=== PATIENT | male | born 1950 | race Caucasian/White ===

== ENCOUNTER 2025-03-11 09:53 | Outpatient (REF) | payer OTHER, SELFPAY ==
--- NOTE | ~2025-03-11 | XR_ITS ---
Exam: Three-view bilateral knee INDICATION: Bilateral knee pain. TECHNIQUE: AP, lateral, sunrise view lower extremity joint, knee bilateral Prior: None FINDINGS: RIGHT KNEE: 3 compartment total knee arthroplasty has been performed. Femoral and tibial components are secured with cement. There is a joint effusion. No abnormal lucency is present at the bone metal interfaces. Vascular calcifications are evident in the popliteal artery vessel and the diameter appears prominent. LEFT KNEE: There is severe narrowing of the medial compartment and mild to moderate narrowing of the lateral joint space. There is minimal narrowing of the patella femoral joint space. There are tricompartmental marginal osteophytes that are moderate sized. There is no joint effusion. There is medial subluxation of the femur at the joint. Vascular calcifications are present in the popliteal artery. XR/XR Knee Fabian 3V IMPRESSION: RIGHT KNEE: Joint effusions. Changes related to total knee arthroplasty. 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 LEFT KNEE: Severe osteoarthritis is most advanced in the medial joint space. Electronically signed by: Alex Ballard MD 03/11/2025 03:10 PM EDT
--- OUTSIDE RECORDS SUMMARY | 2025-03-12 10:58 | XMS_ITS | Clinical Summary ---
Author Organization [facility] Address [address] [place] [address] Phone Care Team Providers Care Water Main Inspector Name Role Phone Alexandrea Renner Primary Care Provider [phone] Allergies Active Allergy Reactions Criticality Noted Date [...] 1:00 PM EDT Office Visit Orthopedic Surgery [place] [address] [phone] Jose Thomas DPM Tinea pedis of both [...] 05/06/2025 1:15 PM EDT Office Visit Orthopedic [facility] [address] [phone] Jose Thomas DPM [address] [address] Health Maintenance Due Date Last Done Comments [...] LAB CHEMISTRY METHOD 11/14/2024 10:06 AM EST [facility] Potassium 4.2 3.5 - 5.5 mmol/L LAB CHEMISTRY METHOD 11/14/2024 10:06 AM [facility] Chloride 100 96 - 110 mmol/L LAB CHEMISTRY METHOD 11/14/2024 10:06 AM [facility] CO2 32 21 - 32 mmol/L LAB CHEMISTRY METHOD 11/14/2024 10:06 AM [facility] Anion Gap 4 3 - 11 LAB CHEMISTRY METHOD 11/14/2024 10:06 AM [facility] Glucose 85 70 - 100 mg/dL LAB CHEMISTRY METHOD 11/14/2024 10:06 AM [facility] BUN 15 5 - 25 mg/dL LAB CHEMISTRY METHOD 11/14/2024 10:06 AM [facility] Creatinine 0.80 0.70 - 1.30 mg/dL LAB CHEMISTRY METHOD 11/14/2024 10:06 AM [facility] eGFR 92 >=60 mL/min/1. 73m2 LAB CHEMISTRY METHOD 11/14/2024 10:06 AM [facility] Comment:Calculation based on the??Chronic Kidney Disease Epidemiology Collaboration (CKD-EPI) equation refit??without adjustment for race. BUN/Creatinine Ratio 18.8 LAB CHEMISTRY METHOD 11/14/2024 10:06 AM [facility] Calcium 8.7 8.5 - 10.5 mg/dL LAB CHEMISTRY METHOD 11/14/2024 10:06 AM [facility] Blood Venous blood specimen / Unknown Venipuncture / Unknown 11/14/2024 6:02 AM EST 11/14/2024 9:18 AM EST us Elena Pepe MD LAB BLOOD ORDERABLES Fin al Result [facility] [address] [place] [address], [place] [phone] from Last 3 Months or Most Recently Relevant to Health Maintenance Insurance [employer] Member Subscriber Plan / Payer (Ef fective 2023-Present) Name:Marcio Cannon Relation to Subscriber:Self Name:Marcio Cannon Payer ID:[id number] Group ID:[id number] Type:Not on file Address: [place] [address] [address] [phone] Care Teams Water Main Inspector Relationship Specialty Start Date End Date Alexandrea Renner PA [address] [place] [id number] PCP - General 08/23/24
== END 2025-03-11 09:54 | disposition home or self-care (01) ==
LOC: HO.HOSX 09:53
PROVIDERS: Visit Provider Orthopaedic Surgery
DX: M25.561 Pain in right knee (principal); M25.562 Pain in left knee; G89.29 Other chronic pain; E66.9 Obesity, unspecified
CPT/HCPCS: 73562; 99202

== ENCOUNTER 2025-03-11 10:52 | Outpatient (AMB) | payer OTHER, SELFPAY ==
--- NOTE | 2025-03-11 11:11 | MHC.OFFVIS ---
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 The patient states that he underwent right total knee replacement surgery approximately 5 years ago. He denies any fevers or chills. The patient states that he has recently put on weight and has tried exercising but has had increased pain. He has not been to formal physical therapy recently. He also reports intermittent pain along the lateral aspects of both of his hips. Receipt And Report Clerk Required: Yes Receipt And Report Clerk Language: In Store Representative Services: Receipt And Report Clerk Present Receipt And Report Clerk Name: GwynSHANIQUAA/NAOMY Allergies atorvastatin [From Lipitor] Adverse Reaction (Unknown, Verified 03/11/25 11:15) Constipation other Allergy (Unknown, Uncoded 03/11/25 11:15) Itching Physical Exam Vital Signs: BMI result Body Mass Index 39.9 Const Other: Well-nourished well-developed very friendly male awake alert and oriented x3 in no acute distress Extrem Other: Right knee examination shows that the surgical incision is well healed, no erythema, full active extension and flexion to 110 degrees, his patella tracks well, no instability Left knee examination shows a minimal effusion, palpable crepitus with range of motion, pain with range of motion, no instability Results Reviewed Results Reviewed: X-rays of the patient's right knee show a total knee arthroplasty in good position with no signs of loosening, no acute bony abnormalities X-rays of the patient's left knee show joint space narrowing, subchondral sclerosis, no acute bony abnormalities Assessment & Plan Assessment & Plan (1) Chronic pain of both knees: Code(s): M25.561 - Pain in right knee; M25.562 - Pain in left knee; G89.29 - Other chronic pain Category: Medical (2) Obesity (BMI 30-39.9): Code(s): E66.9 - Obesity, unspecified Category: Medical Plan Mr. Bebeto العراقي presents with bilateral hip pains as well as bilateral knee pains most likely due to weight gain and deconditioning. At this point he does not appear to have anything mechanically wrong with his right total knee arthroplasty. I had a lengthy discussion with the patient regarding the treatment options. This point no further surgery is indicated. I did recommend that the patient be evaluated in our weight loss clinic. I also gave him a prescription to go back to formal physical therapy. He will follow up with me on an as-needed basis. Feel free to call me at any time should questions regarding his orthopedic management arise. I spent 20 minutes in reviewing the patient's records and imaging studies, seeing the patient and documenting in the medical record. Orders: Orders XR Knee Fabian 3V Today G89.29 - Other chronic pain, M25.561 - Pain in right knee, M25.562 - Pain in left knee PT Evaluation and Treatment Today G89.29 - Other chronic pain, M25.551 - Pain in right hip, M25.552 - Pain in left hip, M25.561 - Pain in right knee, M25.562 - Pain in left knee Referrals Medical Weight Management Referral E66.9 - Obesity, unspecified Coding Level of Care Code New Pt Level 3 (82839) Complex EM visit Add On G2211 Diagnoses Chronic pain of both knees M25.561; M25.562; G89.29 Obesity (BMI 30-39.9) E66.9
[2025-03-11 11:12] VITALS: BMI 39.9
--- OUTSIDE RECORDS SUMMARY | 2025-03-11 12:51 | XMS_ITS | Clinical Summary ---
Author Organization [facility] Address [address] [place] [address] Phone Care Team Providers Care Knurling Machine Tender Name Role Phone Alexandrea Renner Primary Care Provider [phone] Allergies Active Allergy Reactions Criticality Noted Date Comments Vancomycin Anaphylaxis High 08/21/2024 Medications albuterol 2.5 mg /3 mL (0.083 %) nebulizer solution Inhale 3 mL by nebulization route. 5 Active albuterol-budeso nide (Airsupra) 90-80 mcg/actuation inhaler Inhale by mouth. 5 Active amoxicillin (AMOXIL) 875 mg tablet TAKE 1 TABLET BY MOUTH TWO TIMES A DAY FOR 2 DAYS Active aspirin 81 mg EC tablet Take 1 tablet (81 mg total) by mouth 1 (one) time each day. Active bacitracin zinc 500 unit/gram ointment Apply 1 Application topically 2 (two) times a day. 5 Active diclofenac (VOLTAREN) 1 % topical gel Apply 4 g topically 2 times daily. 4 Active ketoconazole (NIZORAL) 2 % cream APPLY TOPICALLY TO AFFECTED AREA TWO TIMES A DAY FOR 4 WEEKS Active olmesartan-hydro CHLOROthiazide (BENICAR HCT) 20-12.5 mg per tablet Take 1 tablet by mouth 1 (one) time each day. Active rosuvastatin (CRESTOR) 40 mg tablet Take 1 tablet (40 mg total) by mouth at bedtime. 5 Active silver sulfADIAZINE (SILVADENE, SSD) 1 % cream PLEASE SEE ATTACHED FOR DETAILED DIRECTIONS 5 Active simvastatin (ZOCOR) 40 mg tablet Take 1 tablet (40 mg total) by mouth at bedtime. Active tamsulosin (FLOMAX) 0.4 mg 24 hr capsule Take 1 capsule (0.4 mg total) by mouth 1 (one) time each day. Active acetaminophen (TYLENOL) 325 mg tablet Take 2 tablets (650 mg total) by mouth every 6 hours as needed. Active Encounters Date Type Department Care Team Description 02/03/2025 1:00 PM EDT Office Visit Orthopedic Surgery [place] [address] [phone] Jose Thomas DPM Tinea pedis of both feet (Primary Dx); Peripheral venous insufficiency; Dermatophytosis of nail; Pain in toe of right foot; Pain in toe of left foot; Bilateral femoral artery stenosis (CMS/HCC V24) from Last 3 Months Social History Tobacco Use Types Packs/Day Years Used Date Smoking Tobacco: Never Assessed Sex and Gender Information Value Date Recorded Sex Assigned at Not on file Legal Sex Male 9:51 AM EST Gender Identity Not on file Sexual Orientation Not on file Last Filed Vital Signs Vital Sign Reading Time Taken Comments Blood Pressure - - Pulse - - Temperature - - Respiratory Rate - - Oxygen Saturation - - Inhaled Oxygen Concentration - - Weight 133 kg (292 lb 12.8 oz) 11/04/2024 1:13 P M EST Height 182.9 cm (6') 11/04/2024 1:13 PM EST Body Mass Index 39.71 11/04/2024 1:13 PM EST Plan of Treatment Upcoming Encounters Date Type Department Care Team (Late st Contact Info) Description 05/06/2025 1:15 PM EDT Office Visit Orthopedic [facility] [address] [phone] Jose Thomas DPM [address] [address] Health Maintenance Due Date Last Done Comments DTaP,Tdap,and Td Vaccines (1 - Tdap) 1967 Pneumococcal Vaccine: 50+ Years (1 of 1 - PCV) 1998 Zoster Vaccines (1 of 2) 1998 RSV Immunization Adult Patients (1 - 1-dose 75+ series) 2023 COVID-19 Vaccine ( season) 2024 Falls Risk Assessment 08/24/2024 Medicare Annual Wellness Visit 08/24/2024 Social Influencers of Health Screening 08/24/2024 Influenza Vaccine (Season Ended) 2025 Hypertension/CHF/CAD Annual BMP Blood Test 11/14/2025 11/14/2024, 11/11/2024, 11/07/2024, Additional history exists Depression Screening 12/10/2025 12/10/2024 Cholesterol Screening (Lipid Panel) 08/21/2029 08/21/2024, 08/21/2024 Hepatitis C Screening Completed 08/21/2024 HIB Vaccines Aged Out No longer eligi ble based on patient's age to complete this topic HPV Vaccines Aged Out No longer eligi ble based on patient's age to complete this topic Hepatitis A Vaccines Aged Out No long er eligible based on patient's age to complete this topic Hepatitis B Vaccines Aged Out No long er eligible based on patient's age to complete this topic IPV Vaccines Aged Out No longer eligi ble based on patient's age to complete this topic MMR Vaccines Aged Out No longer eligi ble based on patient's age to complete this topic Meningococcal ACWY Vaccine Aged Out N o longer eligible based on patient's age to complete this topic Meningococcal B Vaccine Aged Out No l onger eligible based on patient's age to complete this topic RSV Immunization Patients Under 20 months Aged Out No longer eligible based on patient's age to complete this topic Varicella Vaccines Aged Out No longer eligible based on patient's age to complete this topic Procedures Procedure Name Priority Date/Time Associated Diagnosis Comments BASIC METABOLIC PANEL Routine 11/14/2024 6:02 AM EST Chronic embolism and thrombosis of unspecified vein Essential (primary) hypertension from Last 3 Months or Most Recently Relevant to Health Maintenance Results * Basic metabolic panel (11/14/2024 6:02 AM EST) Sodium 136 133 - 145 mmol/L LAB CHEMISTRY METHOD 11/14/2024 10:06 AM EST [facility] Potassium 4.2 3.5 - 5.5 mmol/L LAB CHEMISTRY METHOD 11/14/2024 10:06 AM [facility] Chloride 100 96 - 110 mmol/L LAB CHEMISTRY METHOD 11/14/2024 10:06 AM [facility] CO2 32 21 - 32 mmol/L LAB CHEMISTRY METHOD 11/14/2024 10:06 AM [facility] Anion Gap 4 3 - 11 LAB CHEMISTRY METHOD 11/14/2024 10:06 AM [facility] Glucose 85 70 - 100 mg/dL LAB CHEMISTRY METHOD 11/14/2024 10:06 AM [facility] BUN 15 5 - 25 mg/dL LAB CHEMISTRY METHOD 11/14/2024 10:06 AM [facility] Creatinine 0.80 0.70 - 1.30 mg/dL LAB CHEMISTRY METHOD 11/14/2024 10:06 AM [facility] eGFR 92 >=60 mL/min/1. 73m2 LAB CHEMISTRY METHOD 11/14/2024 10:06 AM [facility] Comment:Calculation based on the??Chronic Kidney Disease Epidemiology Collaboration (CKD-EPI) equation refit??without adjustment for race. BUN/Creatinine Ratio 18.8 LAB CHEMISTRY METHOD 11/14/2024 10:06 AM [facility] Calcium 8.7 8.5 - 10.5 mg/dL LAB CHEMISTRY METHOD 11/14/2024 10:06 AM [facility] Blood Venous blood specimen / Unknown Venipuncture / Unknown 11/14/2024 6:02 AM EST 11/14/2024 9:18 AM EST us Elena Pepe MD LAB BLOOD ORDERABLES Fin al Result [facility] [address] [place] [address], [place] [phone] from Last 3 Months or Most Recently Relevant to Health Maintenance Insurance [employer] Member Subscriber Plan / Payer (Ef fective 2023-Present) Name:Marcio Cannon Relation to Subscriber:Self Name:Marcio Cannon Payer ID:[id number] Group ID:[id number] Type:Not on file Address: [place] [address] [phone] Care Teams Knurling Machine Tender Relationship Specialty Start Date End Date Alexandrea Renner PA [address] [place] [id number] PCP - General 08/23/24
== END 2025-03-11 11:38 | disposition home or self-care (01) ==
LOC: HO.HOS 10:52
PROVIDERS: PCP Internal Medicine; Visit Provider Orthopaedic Surgery
DX: M25.561 Pain in right knee (principal); M25.562 Pain in left knee; G89.29 Other chronic pain; E66.9 Obesity, unspecified; Z96.651 Presence of right artificial knee joint
CPT/HCPCS: 99203; G2211

== ENCOUNTER → 2025-03-11 10:55 | Outpatient (BNV) | payer OTHER, SELFPAY | PROVIDERS: Visit Provider Radiology Diagnostic Radiology | DX: M25.561 Pain in right knee (principal); M25.562 Pain in left knee | CPT/HCPCS: 73562 ==

== ENCOUNTER 2025-05-01 06:47 | Outpatient (REF) | payer OTHER, SELFPAY ==
--- NOTE | ~2025-05-01 | XR_ITS ---
EXAMINATION: XR PELVIS CLINICAL INFORMATION: M25.559 - Pain in unspecified hip COMPARISON: None available. TECHNIQUE: AP view of the pelvis. FINDINGS: Coarse calcification in the midline, near the pubic symphysis joint, is probably prostatic. There is dense calcification in the right common femoral artery. There is mild narrowing of right greater than left SI joints. There is sclerosis involving pubic symphysis joint. There is mild axial joint space narrowing of the hips bilaterally, more on the right. Minimal roof osteophytes are present involving both acetabula. Moderate degenerative sclerosis is visible in the lower lumbar spine. 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 Moderate degenerative changes in the lower lumbar spine. Electronically signed by: Alex Ballard MD 05/01/2025 11:23 AM EDT
--- OUTSIDE RECORDS SUMMARY | 2025-05-01 06:49 | XMS_ITS | Clinical Summary ---
Author Organization [facility] Address [address] [place] [address] Care Team Providers Care Machinist 2Nd Shift Name Role Phone Rachel Melgar NP Primary Care Provider Source Comments PLEASE NOTE, if this patient is a minor, it may be UNLAWFUL to discuss sensitive information that is contained in these records (such as FAMILY PLANNING, MENTAL HEALTH or SUBSTANCE ABUSE) with the minor patient's parent or other person without the patient's specific authorization.[facility] Allergies Active Allergy Reactions Criticality Noted Date Comments Atorvastatin 12/20/2024 constipation Vancomycin Anaphylaxis High 08/21/2024 Medications albuterol-budeson marcos (AIRSUPRA) 90-80 mcg/actuation HFAA Inhale into the lungs 10/09/19 25 Active albuterol (PROVENTIL) 2.5 mg /3 mL (0.083 %) nebulizer solution Inhale 3 mL by nebulization route. 10/07/19 25 Active albuterol-budeson marcos (AIRSUPRA) 90-80 mcg/actuation HFAA Inhale 2 inhalations every 4-6 hours by inhalation route as needed. Active silver sulfADIAZINE (SILVADENE) 1 % creamIndications: Cellulitis, unspecified cellulitis site,Chronic venous insufficiency Apply topically once daily Only apply to wound bed. Cleanse with epson salt or normal saline daily and apply dressing. Change daily. 20 g 1 02/20/20 25 Active aspirin (ADULT LOW DOSE ASPIRIN) [address] tablet Take 1 Tablet by mouth once daily. 90 Tablet 1 02/20/20 25 Active diclofenac sodium (VOLTAREN) 1 % gelIndications:Ch ronic pain of both knees,History of total right knee replacement (TKR) Apply 4 g topically 2 (two) times daily. 150 g 1 02/20/20 25 Active olmesartan-hydroc hlorothiazide (BENICAR HCT) 20-12.5 mg per tabletIndications :Essential (primary) hypertension Take 1 Tablet by mouth once daily. 90 Tablet 1 02/20/20 25 Active rosuvastatin (CRESTOR) 40 mg tabletIndications :Essential (primary) hypertension Take 1 Tablet by mouth nightly at bedtime. 90 Tablet 1 02/20/20 25 Active tamsulosin (FLOMAX) 0.4 mg 24 hr capsuleIndication s:Benign prostatic hyperplasia, unspecified whether lower urinary tract symptoms present Take 1 Capsule by mouth once daily. 90 Capsule 02/20/20 25 Active Active Problems Problem Noted Date Diagnosed Date PAD (peripheral artery disease) ([facility] V24) Overview (04/16/2025): 04/10/2025 - [facility] [place] - Dx: PAD and venous stasis ulcers - Plan: OR for right femoral endarterectomy; Preoperative clearance prior to the operating room - continue diet as appropriate, aspirin and stain, smoking cessation Bilateral femoral artery stenosis ([facility] V24) 02/19/2025 PVD (peripheral vascular disease) ([facility] V24) 02/19/2025 Severe obesity ([facility]) 12/17/2024 S/P knee replacement 12/17/2024 H/O deep venous thrombosis 12/17/2024 Essential (primary) hypertension High cholesterol Cellulitis Dyslipidemia BPH (benign prostatic hyperplasia) Aneurysm artery, popliteal ([facility] V24) Overview (08/21/2024): Noted [facility] 03/01/2024 Decreased strength, endurance, and mobility Tinea pedis Encounters Date Type Department Care Team Description 03/12/2025 Interim Notes Caring [facility] [address] [place] [phone] Jarod Martin 03/06/2025 Interim Notes [facility]aring [facility] [address] [place] [address] Jarod Martin 02/19/2025 1:50 PM EDT Interim Notes Caring [facility] Mobile [address] [place] [address] 02/19/2025 1:00 PM EDT Office Visit [address] [phone] Rachel Melgar NP from Last 3 Months Family History Medical History Relation Name Comments No Known Problems Daughter 1 No Known Problems Daughter 2 No Known Problems Daughter 3 Breast cancer Mother No Known Problems Sister No Known Problems Son 1 No Known Problems Son 2 No Known Problems Son 3 No Known Problems Son 4 Relation Name Status Comments Daughter 1 Alive Daughter 2 Alive Daughter 3 Alive Father Maternal Grandfather Maternal Grandmother Mother Paternal Grandfather Paternal Grandmother Sister Alive Son 1 Alive Son 2 Alive Son 3 Alive Son 4 Alive Social History Tobacco Use Types Packs/Day Years Used Date Smoking Tobacco: Former Cigarettes Smokeless Tobacco: Never Tobacco Cessation:Counseling Given: No Comments:Started smoking ~ 6 years old - Quit smoking 64 years old -- pt reports 40 year pk/hx Alcohol Use Standard Drinks/Week Comments Not Currently 0 (1 standard drink = 0.6 oz pur e alcohol) quit years ago Social Connections Answer Date Recorded How often do you feel lonely or isolated from th ose around you? 1 08/21/2024 Financial Resource Strain Answer Date R ecorded Hard to pay for: Food 1 08/21/2024 Stress Answer Date Recorded Do you feel these kinds of stress these days? 1 08/21/2024 Physical Activity Answer Date Recorded Physical Activity 0 03/11/2024 Food Insecurity Answer Date Recorded Hard to pay for: Food 1 08/21/2024 Transportation Needs Answer Date Record ed Hard to pay for: Transportation 1 08/21/2024 Housing Stability Answer Date Recorded Hard to pay for: Rent/Mortgage payment 1 08/21/2024 Safety and Environment Answer Date Kelvin rded Safety 0 03/11/2024 Utilities Answer Date Recorded Hard to pay for: Utilities 1 08/21 Employment Answer Date Recorded Stress 0 06/17/2024 Sex and Gender Information Value Date Recorded Sex Assigned at Male 08/21/2024 9:07 AM PST Legal Sex Male 8:24 AM PDT Gender Identity Male 08/21/2024 9:07 AM PST Sexual Orientation Straight 08/21/2024 9: 07 AM PST Last Filed Vital Signs Vital Sign Reading Time Taken Comments Blood Pressure 144/66 02/19/2025 1:35 PM EDT Pulse 88 02/19/2025 1:35 PM EDT Temperature 36.6 C (97.9 F) 12/20/2024 1:54 PM EDT Respiratory Rate 18 02/19/2025 1:35 PM EDT Oxygen Saturation 98% 12/20/2024 1:54 PM EDT Inhaled Oxygen Concentration - - Weight 117 kg (258 lb) 08/21/2024 10:17 AM EST Height 182.9 cm (6') 08/21/2024 10:17 AM EST Body Mass Index 34.99 08/21/2024 10:17 AM EST Plan of Treatment Upcoming Encounters Date Type Department Care Team ([facility] st Contact Info) Description 05/07/2025 9:50 AM EDT Interim Notes [address] [phone] 05/07/2025 10:40 AM EDT Office Visit [address] [phone] Rachel Melgar, MUCK MINER [address] [place] [address] 05/07/2025 11:00 AM EDT Interim Notes [address] [phone] Health Maintenance Due Date Last Done Comments Medicare Annual Wellness Visit 1966 Imm-DTaP/Tdap/Td (1 - Tdap) 1967 Imm-Pneumococcal 50+ (1 of 1 - PCV) 1998 Imm-Zoster, Recombinant (1 of 2) 1998 Imm-RSV (adult) (1 - 1-dose 75+ series) 2023 [id number] ( - season) 2024 Imm-Influenza (#1) 2025 Falls Prevention 09/05/2025 09/05/2024 Tobacco Screening 02/20/2026 02/20/2025 Diabetes Screening 11/14/2027 11/14/2024, 0 11/11/2024, 11/07/2024, Additional history exists Hepatitis C Screening Completed 08/21/2024 Alcohol and Drug Screen Completed 12/10/2024 Depression Annual Screen Completed 12/10/2024 Procedures Procedure Name Priority Date/Time Associated Diagnosis Comments REFERRAL TO VASCULAR SURGERY Routine 04/10/2025 3:00 AM EDT Aneurysm artery, popliteal (CMS-HCC V24) Cellulitis of right lower extremity OTHER ORDERS SCANNED DOCUMENT 03/19/2025 3:00 AM EDT REFERRAL TO ORTHOPEDICS Routine 03/11/2025 3:00 AM EDT Status post knee replacement, unspecified laterality OTHER ORDERS SCANNED DOCUMENT 03/10/2025 3:00 AM EDT HEPATITIS C AB W/RFLX HCV RNA, QT, RT PCR Routine 08/21/2024 11:30 AM EST Encounter to establish care COMPREHENSIVE METABOLIC PANEL Routine 08/21/2024 11:30 AM EST Encounter to establish care Essential (primary) hypertension from Last 3 Months or Most Recently Relevant to Health Maintenance Results * REFERRAL TO VASCULAR SURGERY (04/10/2025 3:00 AM EDT) 04/10/2025 3:00 AM EDT Alexandrea Renner PA-C REFERRAL Final Resul t * OTHER ORDERS SCANNED DOCUMENT (03/19/2025 3:00 AM EDT) Only the most recent of2 resultswithin the time period is included. 03/19/2025 3:00 AM EDT us Rachel Melgar NP SCAN OTHER ORDERS Final Resu lt * REFERRAL TO ORTHOPEDICS (03/11/2025 3:00 AM EDT) 03/11/2025 3:00 AM EDT us Rachel Melgar NP REFERRAL Final Result * HEPATITIS C AB W/RFLX HCV RNA, QT, RT PCR (08/21/2024 11:30 AM EST) Pathologist [facility] HEPATITIS C ANTIBODY NON-REACT RADHA NON-REACT RADHA [employer] [facility] Comment: HCV antibody was non-reactive. There is no laboratory evidence of HCV infection. In most cases, no further action is required. However, if recent HCV exposure is suspected, a test for HCV RNA (test code 11038) is suggested. For additional information please refer to http://education.Quack/faq/GFF74a9 (This link is being provided for informational/ educational purposes only.) Blood Blood / Unknown 08/21/2024 1 1:30 AM EST 08/21/2024 11:31 AM EST Narrative [employer] [facility] - 08/22/2024 6:47 AM EST FASTING:NO Alexandrea Renner PA-C LAB - BLOOD DRAW Final Resu lt [employer] [address] [address], [employer] [address] [address] * (ABNORMAL) COMPREHENSIVE METABOLIC PANEL (08/21/2024 11:30 AM EST) [facility] GLUCOSE 100 65 - 139 mg/dL [employer] [facility] Comment: Non-fasting reference interval UREA NITROGEN (BUN) 22 7 - 25 mg/dL [facility] CREATININE (blood) 1.04 0.70 - 1.28 mg/dL [facility] EGFR 74 > OR = 60 mL/min/1. 73m2 [facility] BUN/CREATININE RATIO SEE NOTE: [facility] Comment: Not Reported: BUN and Creatinine are within reference range. SODIUM 136 135 - 146 mmol/L [facility] POTASSIUM 4.2 3.5 - 5.3 mmol/L [facility] CHLORIDE 98 98 - 110 mmol/L [facility] CARBON DIOXIDE 30 20 - 32 mmol/L [facility] CALCIUM 8.7 8.6 - 10.3 mg/dL [facility] PROTEIN, TOTAL 8.1 6.1 - 8.1 g/dL [facility] ALBUMIN 4.0 3.6 - 5.1 g/dL [facility] GLOBULIN 4.1(H) 1.9 - 3.7 g/dL (calc) [employer] [facility] ALBUMIN/GLOBULI N RATIO 1.0 1.0 - 2.5 (calc) [employer] [facility] BILIRUBIN, TOTAL 0.4 0.2 - 1.2 mg/dL [employer] [facility] ALKALINE PHOSPHATASE 79 35 - 144 U/L [facility] AST 21 10 - 35 U/L [employer] [facility] ALT 19 9 - 46 U/L [employer] [facility] Blood Blood / Unknown 08/21/2024 1 1:30 AM EST 08/21/2024 11:31 AM EST Narrative [employer] [facility] [employer] [facility] - 08/22/2024 6:47 AM EST FASTING:NO us Alexandrea Renner PA-C LAB - BLOOD DRAW Edited Res ult - Final [employer] [address] [address], [employer] [facility] [address] [place] [address] from Last 3 Months or Most Recently Relevant to Health Maintenance Insurance [facility] Care Teams Machinist 2Nd Shift Relationship Specialty Start Date End Date Rachel Melgar NP [address] [place] [address] PCP - General Internal Medicine 09/03/24
--- OUTSIDE RECORDS SUMMARY | 2025-05-01 06:49 | XMS_ITS | Clinical Summary ---
Author Organization [facility] Address [address] [place] [address] Phone Care Team Providers Care Hand I Cutter Name Role Phone Alexandrea Renner Primary Care Provider [phone] Allergies Active Allergy Reactions Criticality Noted Date [...] 1:00 PM EDT Office Visit Orthopedic Surgery [place] [address] [phone] Jose Thomas DPM Tinea pedis of both [...] 05/06/2025 1:15 PM EDT Office Visit Orthopedic [facility] [address] [phone] Jose Thomas DPM [address] [address] Health Maintenance Due Date Last Done Comments DTaP,Tdap,and Td Vaccines (1 - Tdap) 1967 Pneumococcal Vaccine: 50+ Years (1 of 1 - PCV) 1998 Zoster Vaccines (1 of 2) 1998 RSV Immunization Adult Patients (1 - 1-dose 75+ series) 2023 COVID-19 Vaccine (2023- season) 2024 Falls Risk Assessment 08/24/2024 Medicare Annual Wellness Visit 08/24/2024 Social Influencers of Health Screening 08/24/2024 Depression Screening 10/02/2024 Influenza Vaccine (#1) 2025 Hypertension/CHF/CAD Annual BMP Blood Test 11/14/2025 11/14/2024, 11/11/2024, 11/07/2024, Additional history exists Cholesterol Screening (Lipid Panel) 08/21/2029 08/21/2024, 08/21/2024 [...] LAB CHEMISTRY METHOD 11/14/2024 10:06 AM EST [facility] Potassium 4.2 3.5 - 5.5 mmol/L LAB CHEMISTRY METHOD 11/14/2024 10:06 AM [facility] Chloride 100 96 - 110 mmol/L LAB CHEMISTRY METHOD 11/14/2024 10:06 AM [facility] CO2 32 21 - 32 mmol/L LAB CHEMISTRY METHOD 11/14/2024 10:06 AM [facility] Anion Gap 4 3 - 11 LAB CHEMISTRY METHOD 11/14/2024 10:06 AM [facility] Glucose 85 70 - 100 mg/dL LAB CHEMISTRY METHOD 11/14/2024 10:06 AM [facility] BUN 15 5 - 25 mg/dL LAB CHEMISTRY METHOD 11/14/2024 10:06 AM [facility] Creatinine 0.80 0.70 - 1.30 mg/dL LAB CHEMISTRY METHOD 11/14/2024 10:06 AM [facility] eGFR 92 >=60 mL/min/1. 73m2 LAB CHEMISTRY METHOD 11/14/2024 10:06 AM [facility] Comment:Calculation based on the Chronic Kidney Disease Epidemiology Collaboration (CKD-EPI) equation refit without adjustment for race. BUN/Creatinine Ratio 18.8 LAB CHEMISTRY METHOD 11/14/2024 10:06 AM [facility] Calcium 8.7 8.5 - 10.5 mg/dL LAB CHEMISTRY METHOD 11/14/2024 10:06 AM [facility] Blood Venous blood specimen / Unknown Venipuncture / Unknown 11/14/2024 6:02 AM EST 11/14/2024 9:18 AM EST us Elena Pepe MD LAB BLOOD ORDERABLES Fin al Result [facility] [address] [place] [address], from Last 3 Months or Most Recently Relevant to Health Maintenance Insurance [employer] Member Subscriber Plan / Payer (Ef fective 2023-Present) Name:Marcio Mendoza Relation to Subscriber:Self Name:Marcio Mendoza Payer ID:[id number] Group ID:[id number] Type:Not on file Address: [place] [address] [address] [address] Care Teams Hand I Cutter Relationship Specialty Start Date End Date Alexandrea Renner PA [address] [place] [address] PCP - General 08/23/24
== END 2025-05-01 06:48 | disposition home or self-care (01) ==
LOC: HO.HOSX 06:47
PROVIDERS: Visit Provider Orthopaedic Surgery
DX: M16.0 Bilateral primary osteoarthritis of hip (principal); M25.551 Pain in right hip; M25.552 Pain in left hip; G89.29 Other chronic pain; S81.801A Unspecified open wound, right lower leg, initial encounter; S81.802A Unspecified open wound, left lower leg, initial encounter
CPT/HCPCS: 72170; 99212

== ENCOUNTER 2025-05-01 11:04 | Outpatient (AMB) | payer OTHER, SELFPAY ==
--- NOTE | 2025-05-01 11:25 | A.OFFVIS_ITS ---
Intake Visit Reasons: New Prob- Bilateral hip pain Intake Note: Marcio is a 74 year old male who presents today for a New Problem visit with complaints of Bilateral Hip Pain. Patient is booked with Weight Mgmt on 05/22/25. Allergies atorvastatin (From Lipitor) Adverse Reaction (Unknown, Verified 03/11/25 11:15) Constipation other Allergy (Unknown, Uncoded 03/11/25 11:15) Itching HPI HPI New Prob- Bilateral hip pain: Details: This is a 74-year-old who describes bilateral hip pain. He is in a wheelchair and states he can not walk because of his hip pain. When I asked him more about his pain however he describes a sensation of feeling like he can not control his legs. He does not have any pain. He is able to stand and a walker but has difficulty walking. He has bilateral wounds of the lower legs in his had knee replacement surgery in the remote past. He states he has had an MRI and [facility] but we do not have access to any of the information now. Physical Exam Const Other: Well-nourished well-developed very friendly male awake alert and oriented x3 in no acute distress Extrem Other: Right knee examination shows that the surgical incision is well healed, no erythema, full active extension and flexion to 110 degrees. Skin of the left knee appears intact. He has no pain with hip range of motion. He has severe edema bilateral legs and his lower legs are covered in dressings for what he describes as ?open wounds?. Results Reviewed Results Reviewed: I personally reviewed relevant radiographs. ild degenerative changes of bilateral SI and hip joints as well as the pubic symphysis joint. Moderate degenerative changes in the lower lumbar spine. Assessment & Plan Assessment & Plan (1) Chronic hip pain, bilateral: Code(s): M25.551 - Pain in right hip; M25.552 - Pain in left hip; G89.29 - Other chronic pain Category: Medical Plan: This is a 74-year-old gentleman with mild arthritis on x-ray with no hip pain on exam. He is a poor historian is very difficult for me to even figure out why he is here. I will review his records from [facility] and make a recommendation but he has been referred for weight management and I suspect that there are some underlying chronic pain and/or spine related pathology but there is no evidence of treatable hip pathology. I do think it would benefit physical therapy but he states he has been to therapy add nausea him and does not want to do it more. Orders: Orders XR pelvis 1-2V 05/01/25 M25.559 - Pain in unspecified hip Coding Level of Care Code Est Pt Level 3 (26247) Diagnoses Chronic hip pain, bilateral M25.551; M25.552; G89.29
== END 2025-05-01 12:15 | disposition home or self-care (01) ==
LOC: HO.HOS 11:04
PROVIDERS: PCP Internal Medicine; Visit Provider Orthopaedic Surgery
DX: M25.551 Pain in right hip (principal); M25.552 Pain in left hip; G89.29 Other chronic pain
CPT/HCPCS: 99213

== ENCOUNTER → 2025-05-01 11:05 | Outpatient (BNV) | payer OTHER, SELFPAY | PROVIDERS: Visit Provider Radiology Diagnostic Radiology | DX: M46.1 Sacroiliitis, not elsewhere classified (principal) | CPT/HCPCS: 72170 ==

== ENCOUNTER 2025-06-30 08:19 | Outpatient (AMB) | payer OTHER, SELFPAY ==
--- OUTSIDE RECORDS SUMMARY | 2025-06-30 08:34 | XMS_ITS | Encounter Summary ---
Author Organization [facility] Address [address] [place] [address] Care Team Providers Care Senior Core Java Developer Name Role Phone Alexandrea Renner Primary Care Provider [phone] Encounter Details Date Type Department Care Team (Late st Contact Info) Description 11/08/[address] [facility] [address] [facility] [place] [phone] Elena Pepe MD [address] [address] Essential (primary) hypertension; Chronic embolism and thrombosis of unspecified vein Social History Tobacco Use Types Packs/Day Years Used Date Smoking Tobacco: Never Assessed Sex and Gender Information Value Date Recorded Sex Assigned at Not on file Legal Sex Male 9:51 AM EST Gender Identity Not on file Sexual Orientation Not on file documented as of this encounter Plan of Treatment Upcoming Encounters Date Type Department Care Team (Late st Contact Info) Description 08/07/2025 1:30 PM EST Office Visit Orthopedic Surgery - [place] [address] [phone] Jose Thomas, DPM [address] [phone] documented as of this encounter Procedures Procedure Name Priority Date/Time Associated Diagnosis Comments COMPLETE BLOOD COUNT Routine 11/11/2024 7:06 AM EST Essential (primary) hypertension Chronic embolism and thrombosis of unspecified vein BASIC METABOLIC PANEL Routine 11/11/2024 7:06 AM EST Essential (primary) hypertension Chronic embolism and thrombosis of unspecified vein documented in this encounter Results * Basic metabolic panel (11/11/2024 7:06 AM EST) Sodium 136 133 - 145 mmol/L LAB CHEMISTRY METHOD 11/11/2024 10:54 AM [facility] Potassium 4.3 3.5 - 5.5 mmol/L LAB CHEMISTRY METHOD 11/11/2024 10:54 AM [facility] Chloride 100 96 - 110 mmol/L LAB CHEMISTRY METHOD 11/11/2024 10:54 AM [facility] CO2 30 21 - 32 mmol/L LAB CHEMISTRY METHOD 11/11/2024 10:54 AM [facility] Anion Gap 6 3 - 11 LAB CHEMISTRY METHOD 11/11/2024 10:54 AM [facility] Glucose 83 70 - 100 mg/dL LAB CHEMISTRY METHOD 11/11/2024 10:54 AM [facility] BUN 16 5 - 25 mg/dL LAB CHEMISTRY METHOD 11/11/2024 10:54 AM [facility] Creatinine 0.85 0.70 - 1.30 mg/dL LAB CHEMISTRY METHOD 11/11/2024 10:54 AM [facility] eGFR 90 >=60 mL/min/1. 73m2 LAB CHEMISTRY METHOD 11/11/2024 10:54 AM [facility] Comment:Calculation based on the Chronic Kidney Disease Epidemiology Collaboration (CKD-EPI) equation refit without adjustment for race. BUN/Creatinine Ratio 18.8 LAB CHEMISTRY METHOD 11/11/2024 10:54 AM [facility] Calcium 8.9 8.5 - 10.5 mg/dL LAB CHEMISTRY METHOD 11/11/2024 10:54 AM [facility] Blood Venous blood specimen / Unknown Venipuncture / Unknown 11/11/2024 7:06 AM EST 11/11/2024 10:05 AM EST us Elena Pepe MD LAB BLOOD ORDERABLES Fin al Result [facility] [address] [place] [address], * (ABNORMAL) Complete blood count (11/11/2024 7:06 AM EST) WBC 8.8 4.8 - 10.8 K/mcL LAB HEMETOLOGY METHOD 11/11/2024 10:30 AM [facility] RBC 4.40(L) 4.50 - 5.50 M/mcL LAB HEMETOLOGY METHOD 11/11/2024 10:30 AM [facility] Hemoglobin 12.4(L) 13.5 - 17.5 g/dL LAB HEMETOLOGY METHOD 11/11/2024 10:30 AM [facility] Hematocrit 39.8(L) 42.0 - 54.0 % LAB HEMETOLOGY METHOD 11/11/2024 10:30 AM [facility] MCV 89.8 79.0 - 98.0 FL LAB HEMETOLOGY METHOD 11/11/2024 10:30 AM [facility] MCH 28.0 27.0 - 32.0 pcg LAB HEMETOLOGY METHOD 11/11/2024 10:30 AM [facility] MCHC 31.2(L) 32.0 - 37.0 g/dL LAB HEMETOLOGY METHOD 11/11/2024 10:30 AM [facility] RDW 14.3 11.0 - 15.0 % LAB HEMETOLOGY METHOD 11/11/2024 10:30 AM [facility] Platelets 275 130 - 400 K/mcL LAB HEMETOLOGY METHOD 11/11/2024 10:30 AM [facility] MPV 10.0 7.0 - 11.0 FL LAB HEMETOLOGY METHOD 11/11/2024 10:30 AM EST [facility] NRBC 0.0 <1.0 % LAB HEMETOLOGY METHOD 11/11/2024 10:30 AM EST [facility] NRBC Absolute 0.00 <0.10 K/mcL LAB HEMETOLOGY METHOD 11/11/2024 10:30 AM EST [facility] Blood Venous blood specimen / Unknown Venipuncture / Unknown 11/11/2024 7:06 AM EST 11/11/2024 10:05 AM EST us Elena Pepe MD LAB BLOOD ORDERABLES Fin al Result [facility] [address] [place] [address], documented in this encounter Visit Diagnoses Diagnosis Essential (primary) hypertension Unspecified essential hypertension Chronic embolism and thrombosis of unspecified vein documented in this encounter Care Teams Senior Core Java Developer Relationship Specialty Start Date End Date Alexandrea Renner PA [address] [place] [address] PCP - General 08/23/24 documented as of this encounter
--- OUTSIDE RECORDS SUMMARY | 2025-06-30 08:34 | XMS_ITS | Encounter Summary ---
Author Organization [facility] Address [address] [place] [address] Care Team Providers Care Dancing Teacher Name Role Phone Alexandrea Renner Primary Care Provider [phone] Encounter Details Date Type Department Care Team (Late st Contact Info) Description 11/03/2024 Lab Requisition [facility] - Main Lab 299 [facility] [place] [phone] Elena Pepe MD [address] [address] Essential (primary) hypertension; Chronic embolism and thrombosis [...] PM EST Office Visit Orthopedic Surgery - [place] [address] [phone] Jose Thomas, DPM [address] [phone] documented as of this encounter Procedures Procedure Name Priority Date/Time Associated Diagnosis Comments COMPLETE BLOOD COUNT Routine 11/04/2024 7:25 AM EST Essential (primary) hypertension Chronic embolism and thrombosis of unspecified vein URIC ACID Routine 11/04/2024 7:25 AM EST Essential (primary) hypertension Chronic embolism and thrombosis of unspecified vein BASIC METABOLIC PANEL Routine 11/04/2024 7:25 AM EST Essential (primary) hypertension Chronic embolism and thrombosis of unspecified vein documented in this encounter Results * Uric acid (11/04/2024 7:25 AM EST) Uric Acid 5.7 3.7 - 9.2 mg/dL LAB CHEMISTRY METHOD 11/04/2024 1:08 PM [facility] Blood Venous blood specimen / Unknown Venipuncture / Unknown 11/04/2024 7:25 AM EST 11/04/2024 11:08 AM EST us Elena Pepe MD LAB BLOOD ORDERABLES Fin al Result [facility] [address] [place] [address], * Basic metabolic panel (11/04/2024 7:25 AM EST) Sodium 135 133 - 145 mmol/L LAB CHEMISTRY METHOD 11/04/2024 1:08 PM [facility] Potassium 3.8 3.5 - 5.5 mmol/L LAB CHEMISTRY METHOD 11/04/2024 1:08 PM [facility] Chloride 97 96 - 110 mmol/L LAB CHEMISTRY METHOD 11/04/2024 1:08 PM [facility] CO2 31 21 - 32 mmol/L LAB CHEMISTRY METHOD 11/04/2024 1:08 PM [facility] Anion Gap 7 3 - 11 LAB CHEMISTRY METHOD 11/04/2024 1:08 PM [facility] Glucose 80 70 - 100 mg/dL LAB CHEMISTRY METHOD 11/04/2024 1:08 PM [facility] BUN 18 5 - 25 mg/dL LAB CHEMISTRY METHOD 11/04/2024 1:08 PM [facility] Creatinine 0.84 0.70 - 1.30 mg/dL LAB CHEMISTRY METHOD 11/04/2024 1:08 PM [facility] eGFR 90 >=60 mL/min/1. 73m2 LAB CHEMISTRY METHOD 11/04/2024 1:08 PM [facility] Comment:Calculation based on the Chronic Kidney Disease Epidemiology Collaboration (CKD-EPI) equation refit without adjustment for race. BUN/Creatinine Ratio 21.4 LAB CHEMISTRY METHOD 11/04/2024 1:08 PM [facility] Calcium 8.8 8.5 - 10.5 mg/dL LAB CHEMISTRY METHOD 11/04/2024 1:08 PM [facility] Blood Venous blood specimen / Unknown Venipuncture / Unknown 11/04/2024 7:25 AM EST 11/04/2024 11:08 AM EST Elena Pepe MD LAB BLOOD ORDERABLES Fin al Result [facility] [address] [place] [address], * (ABNORMAL) Complete blood count (11/04/2024 7:25 AM EST) WBC 11.3(H) 4.8 - 10.8 K/mcL LAB HEMETOLOGY METHOD 11/04/2024 11:38 AM [facility] RBC 4.60 4.50 - 5.50 M/mcL LAB HEMETOLOGY METHOD 11/04/2024 11:38 AM [facility] Hemoglobin 13.1(L) 13.5 - 17.5 g/dL LAB HEMETOLOGY METHOD 11/04/2024 11:38 AM [facility] Hematocrit 41.0(L) 42.0 - 54.0 % LAB HEMETOLOGY METHOD 11/04/2024 11:38 AM [facility] MCV 88.4 79.0 - 98.0 FL LAB HEMETOLOGY METHOD 11/04/2024 11:38 AM EST [facility] MCH 28.2 27.0 - 32.0 pcg LAB HEMETOLOGY METHOD 11/04/2024 11:38 AM [facility] MCHC 32.0 32.0 - 37.0 g/dL LAB HEMETOLOGY METHOD 11/04/2024 11:38 AM [facility] RDW 14.7 11.0 - 15.0 % LAB HEMETOLOGY METHOD 11/04/2024 11:38 AM [facility] Platelets 177 130 - 400 K/mcL LAB HEMETOLOGY METHOD 11/04/2024 11:38 AM [facility] MPV 10.7 7.0 - 11.0 FL LAB HEMETOLOGY METHOD 11/04/2024 11:38 AM EST [facility] NRBC 0.0 <1.0 % LAB HEMETOLOGY METHOD 11/04/2024 11:38 AM [facility] NRBC Absolute 0.00 <0.10 K/mcL LAB HEMETOLOGY METHOD 11/04/2024 11:38 AM [facility] Blood Venous blood specimen / Unknown Venipuncture / Unknown 11/04/2024 7:25 AM EST 11/04/2024 11:07 AM EST us Elena Pepe MD LAB BLOOD ORDERABLES Fin al Result [facility] [address] [place] [address], documented in this encounter Visit Diagnoses Diagnosis Essential (primary) hypertension Unspecified essential hypertension Chronic embolism and thrombosis of unspecified vein documented in this encounter Care Teams Dancing Teacher Relationship Specialty Start Date End Date Alexandrea Renner PA [address] [place] [phone] PCP - General 08/23/24 documented as of this encounter
--- OUTSIDE RECORDS SUMMARY | 2025-06-30 08:34 | XMS_ITS | Encounter Summary ---
Author Organization [facility] Address [address] [place] [address] Care Team Providers Care Shipping Processor Name Role Phone Alexandrea Renner Primary Care Provider [phone] Encounter Details Date Type Department Care Team (Late st Contact Info) Description 11/13/2024 Lab Requisition [facility] - Main Lab 299 [facility] [place] [phone] Elena Pepe MD [address] [address] Chronic embolism and thrombosis of unspecified vein; Essential (primary) hypertension Social History Tobacco Use Types Packs/Day Years [...] PM EST Office Visit Orthopedic Surgery - [place] [address] [phone] Jose Thomas, DPM [address] [phone] documented as of this encounter Procedures Procedure Name Priority Date/Time Associated Diagnosis Comments COMPLETE BLOOD COUNT Routine 11/14/2024 6:02 AM EST Chronic embolism and thrombosis of unspecified vein Essential (primary) hypertension BASIC METABOLIC PANEL Routine 11/14/2024 6:02 AM EST Chronic embolism and thrombosis of unspecified vein Essential (primary) hypertension documented in this encounter Results * Basic metabolic panel (11/14/2024 6:02 AM EST) Sodium 136 133 - 145 mmol/L LAB CHEMISTRY METHOD 11/14/2024 10:06 AM [facility] Potassium 4.2 3.5 - 5.5 [...] [facility] Comment:Calculation based on the Chronic [...] MD LAB BLOOD ORDERABLES Fin al Result [facility] [address] [place] [address], * (ABNORMAL) Complete blood count (11/14/2024 6:02 AM EST) WBC 9.0 4.8 - 10.8 K/mcL LAB HEMETOLOGY METHOD 11/14/2024 9:41 AM [facility] RBC 4.50 4.50 - 5.50 M/mcL LAB HEMETOLOGY METHOD 11/14/2024 9:41 AM [facility] Hemoglobin 12.3(L) 13.5 - 17.5 g/dL LAB HEMETOLOGY METHOD 11/14/2024 9:41 AM [facility] Hematocrit 39.3(L) 42.0 - 54.0 % LAB HEMETOLOGY METHOD 11/14/2024 9:41 AM [facility] MCV 88.3 79.0 - 98.0 FL LAB HEMETOLOGY METHOD 11/14/2024 9:41 AM [facility] MCH 27.6 27.0 - 32.0 pcg LAB HEMETOLOGY METHOD 11/14/2024 9:41 AM [facility] MCHC 31.3(L) 32.0 - 37.0 g/dL LAB HEMETOLOGY METHOD 11/14/2024 9:41 AM [facility] RDW 14.2 11.0 - 15.0 % LAB HEMETOLOGY METHOD 11/14/2024 9:41 AM [facility] Platelets 258 130 - 400 K/mcL LAB HEMETOLOGY METHOD 11/14/2024 9:41 AM [facility] MPV 9.5 7.0 - 11.0 FL LAB HEMETOLOGY METHOD 11/14/2024 9:41 AM EST [facility] NRBC 0.0 <1.0 % LAB HEMETOLOGY METHOD 11/14/2024 9:41 AM EST [facility] NRBC Absolute 0.00 <0.10 K/mcL LAB HEMETOLOGY METHOD 11/14/2024 9:41 AM EST [facility] Blood Venous blood specimen / Unknown Venipuncture / Unknown 11/14/2024 6:02 AM EST 11/14/2024 9:18 AM EST us Elena Pepe MD LAB BLOOD ORDERABLES Fin al Result [facility] [address] [place] [address], documented in this encounter Visit Diagnoses Diagnosis Chronic embolism and thrombosis of unspecified vein Essential (primary) hypertension Unspecified essential hypertension documented in this encounter Care Teams Shipping Processor Relationship Specialty Start Date End Date Alexandrea Renner PA [address] [place] [address] PCP - General 08/23/24 documented as of this encounter
--- OUTSIDE RECORDS SUMMARY | 2025-06-30 08:34 | XMS_ITS | Encounter Summary ---
Author Organization [facility] Address [address] [place] [address] Care Team Providers Care Regional Dedicated Truck Driver Name Role Phone Alexandrea Renner Primary Care Provider [phone] Encounter Details Date Type Department Care Team (Late st Contact Info) Description 10/30/2024 Lab Requisition [facility] - Main Lab 299 [facility] [place] [phone] Elena Pepe MD [address] [address] Essential (primary) hypertension; Chronic embolism and thrombosis [...] PM EST Office Visit Orthopedic Surgery - [place] [address] [phone] Jose Thomas, DPM [address] [phone] documented as of this encounter Procedures Procedure Name Priority Date/Time Associated Diagnosis Comments COMPLETE BLOOD COUNT Routine 10/31/2024 6:34 AM EST Essential (primary) hypertension Chronic embolism and thrombosis of unspecified vein BASIC METABOLIC PANEL Routine 10/31/2024 6:34 AM EST Essential (primary) hypertension Chronic embolism and thrombosis of unspecified vein documented in this encounter Results * Basic metabolic panel (10/31/2024 6:34 AM EST) Sodium 136 133 - 145 mmol/L LAB CHEMISTRY METHOD 10/31/2024 10:40 AM [facility] Potassium 4.4 3.5 - 5.5 mmol/L LAB CHEMISTRY METHOD 10/31/2024 10:40 AM [facility] Chloride 100 96 - 110 mmol/L LAB CHEMISTRY METHOD 10/31/2024 10:40 AM [facility] CO2 28 21 - 32 mmol/L LAB CHEMISTRY METHOD 10/31/2024 10:40 AM [facility] Anion Gap 8 3 - 11 LAB CHEMISTRY METHOD 10/31/2024 10:40 AM [facility] Glucose 100 70 - 100 mg/dL LAB CHEMISTRY METHOD 10/31/2024 10:40 AM [facility] BUN 21 5 - 25 mg/dL LAB CHEMISTRY METHOD 10/31/2024 10:40 AM [facility] Creatinine 0.88 0.70 - 1.30 mg/dL LAB CHEMISTRY METHOD 10/31/2024 10:40 AM [facility] eGFR 89 >=60 mL/min/1. 73m2 LAB CHEMISTRY METHOD 10/31/2024 10:40 AM [facility] Comment:Calculation based on the Chronic Kidney Disease Epidemiology Collaboration (CKD-EPI) equation refit without adjustment for race. BUN/Creatinine Ratio 23.9 LAB CHEMISTRY METHOD 10/31/2024 10:40 AM [facility] Calcium 8.6 8.5 - 10.5 mg/dL LAB CHEMISTRY METHOD 10/31/2024 10:40 AM [facility] Blood Venous blood specimen / Unknown Venipuncture / Unknown 10/31/2024 6:34 AM EST 10/31/2024 9:41 AM EST us Elena Pepe MD LAB BLOOD ORDERABLES Fin al Result [facility] [address] [place] [address], * Complete blood count (10/31/2024 6:34 AM EST) WBC 9.5 4.8 - 10.8 K/mcL LAB HEMETOLOGY METHOD 10/31/2024 10:17 AM EST [facility] RBC 4.80 4.50 - 5.50 M/mcL LAB HEMETOLOGY METHOD 10/31/2024 10:17 AM [facility] Hemoglobin 13.8 13.5 - 17.5 g/dL LAB HEMETOLOGY METHOD 10/31/2024 10:17 AM [facility] Hematocrit 43.1 42.0 - 54.0 % LAB HEMETOLOGY METHOD 10/31/2024 10:17 AM [facility] MCV 90.2 79.0 - 98.0 FL LAB HEMETOLOGY METHOD 10/31/2024 10:17 AM [facility] MCH 28.9 27.0 - 32.0 pcg LAB HEMETOLOGY METHOD 10/31/2024 10:17 AM [facility] MCHC 32.0 32.0 - 37.0 g/dL LAB HEMETOLOGY METHOD 10/31/2024 10:17 AM [facility] RDW 14.7 11.0 - 15.0 % LAB HEMETOLOGY METHOD 10/31/2024 10:17 AM [facility] Platelets 188 130 - 400 K/mcL LAB HEMETOLOGY METHOD 10/31/2024 10:17 AM [facility] MPV 10.9 7.0 - 11.0 FL LAB HEMETOLOGY METHOD 10/31/2024 10:17 AM EST [facility] NRBC 0.0 <1.0 % LAB HEMETOLOGY METHOD 10/31/2024 10:17 AM EST [facility] NRBC Absolute 0.00 <0.10 K/mcL LAB HEMETOLOGY METHOD 10/31/2024 10:17 AM EST [facility] Blood Venous blood specimen / Unknown 10/31/2024 6:34 AM EST 10/31/2024 9:41 AM EST us Elena Pepe MD LAB BLOOD ORDERABLES Fin al Result [facility] [address] [place] [address], documented in this encounter Visit Diagnoses Diagnosis Essential (primary) hypertension Unspecified essential hypertension Chronic embolism and thrombosis of unspecified vein documented in this encounter Care Teams Regional Dedicated Truck Driver Relationship Specialty Start Date End Date Alexandrea Renner PA [address] [place] [address] PCP - General 08/23/24 documented as of this encounter
--- OUTSIDE RECORDS SUMMARY | 2025-06-30 08:34 | XMS_ITS | Encounter Summary ---
Author Organization [facility] Address [address] [place] [address] Care Team Providers Care Paid Search Marketing Analyst Name Role Phone Alexandrea Renner Primary Care Provider [phone] Encounter Details Date Type Department Care Team (Late st Contact Info) Description 11/06/2024 Lab Requisition [facility] - Main Lab 299 [facility] [place] [phone] Elena Pepe MD [address] [address] Essential (primary) hypertension; Chronic embolism and thrombosis [...] PM EST Office Visit Orthopedic Surgery - [place] [address] [phone] Jose Thomas, DPM [address] [phone] documented as of this encounter Procedures Procedure Name Priority Date/Time Associated Diagnosis Comments COMPLETE BLOOD COUNT Routine 11/07/2024 6:47 AM EST Essential (primary) hypertension Chronic embolism and thrombosis of unspecified vein BASIC METABOLIC PANEL Routine 11/07/2024 6:47 AM EST Essential (primary) hypertension Chronic embolism and thrombosis of unspecified vein documented in this encounter Results * Basic metabolic panel (11/07/2024 6:47 AM EST) Sodium 136 133 - 145 mmol/L LAB CHEMISTRY METHOD 11/07/2024 11:36 AM [facility] Potassium 4.0 3.5 - 5.5 mmol/L LAB CHEMISTRY METHOD 11/07/2024 11:36 AM [facility] Chloride 96 96 - 110 mmol/L LAB CHEMISTRY METHOD 11/07/2024 11:36 AM [facility] CO2 31 21 - 32 mmol/L LAB CHEMISTRY METHOD 11/07/2024 11:36 AM [facility] Anion Gap 9 3 - 11 LAB CHEMISTRY METHOD 11/07/2024 11:36 AM [facility] Glucose 90 70 - 100 mg/dL LAB CHEMISTRY METHOD 11/07/2024 11:36 AM [facility] BUN 15 5 - 25 mg/dL LAB CHEMISTRY METHOD 11/07/2024 11:36 AM [facility] Creatinine 0.82 0.70 - 1.30 mg/dL LAB CHEMISTRY METHOD 11/07/2024 11:36 AM [facility] eGFR 91 >=60 mL/min/1. 73m2 LAB CHEMISTRY METHOD 11/07/2024 11:36 AM [facility] Comment:Calculation based on the Chronic Kidney Disease Epidemiology Collaboration (CKD-EPI) equation refit without adjustment for race. BUN/Creatinine Ratio 18.3 LAB CHEMISTRY METHOD 11/07/2024 11:36 AM [facility] Calcium 8.6 8.5 - 10.5 mg/dL LAB CHEMISTRY METHOD 11/07/2024 11:36 AM [facility] Blood Venous blood specimen / Unknown Venipuncture / Unknown 11/07/2024 6:47 AM EST 11/07/2024 10:45 AM EST us Elena Pepe MD LAB BLOOD ORDERABLES Fin al Result [facility] [address] [place] [address], * (ABNORMAL) Complete blood count (11/07/2024 6:47 AM EST) WBC 9.2 4.8 - 10.8 K/mcL LAB HEMETOLOGY METHOD 11/07/2024 11:40 AM [facility] RBC 4.50 4.50 - 5.50 M/mcL LAB HEMETOLOGY METHOD 11/07/2024 11:40 AM [facility] Hemoglobin 12.6(L) 13.5 - 17.5 g/dL LAB HEMETOLOGY METHOD 11/07/2024 11:40 AM [facility] Hematocrit 40.2(L) 42.0 - 54.0 % LAB HEMETOLOGY METHOD 11/07/2024 11:40 AM [facility] MCV 89.7 79.0 - 98.0 FL LAB HEMETOLOGY METHOD 11/07/2024 11:40 AM [facility] MCH 28.1 27.0 - 32.0 pcg LAB HEMETOLOGY METHOD 11/07/2024 11:40 AM [facility] MCHC 31.3(L) 32.0 - 37.0 g/dL LAB HEMETOLOGY METHOD 11/07/2024 11:40 AM [facility] RDW 14.6 11.0 - 15.0 % LAB HEMETOLOGY METHOD 11/07/2024 11:40 AM [facility] Platelets 215 130 - 400 K/mcL LAB HEMETOLOGY METHOD 11/07/2024 11:40 AM [facility] MPV 10.4 7.0 - 11.0 FL LAB HEMETOLOGY METHOD 11/07/2024 11:40 AM EST [facility] NRBC 0.0 <1.0 % LAB HEMETOLOGY METHOD 11/07/2024 11:40 AM EST [facility] NRBC Absolute 0.00 <0.10 K/mcL LAB HEMETOLOGY METHOD 11/07/2024 11:40 AM EST [facility] Blood Venous blood specimen / Unknown Venipuncture / Unknown 11/07/2024 6:47 AM EST 11/07/2024 10:45 AM EST us Elena Pepe MD LAB BLOOD ORDERABLES Fin al Result [facility] [address] [place] [address], documented in this encounter Visit Diagnoses Diagnosis Essential (primary) hypertension Unspecified essential hypertension Chronic embolism and thrombosis of unspecified vein documented in this encounter Care Teams Paid Search Marketing Analyst Relationship Specialty Start Date End Date Alexandrea Renner PA [address] [place] [address] PCP - General 08/23/24 documented as of this encounter
--- OUTSIDE RECORDS SUMMARY | 2025-06-30 08:34 | XMS_ITS | Encounter Summary ---
Author Organization [facility] Address [address] [place] [address] Care Team Providers Care Sock Mender Name Role Phone Alexandrea Renner Primary Care Provider [phone] Encounter Details Date Type Department Care Team (Late st Contact Info) Description 11/15/2024 Lab Requisition [facility] - Main Lab 299 [facility] [place] [phone] Elena Pepe MD [address] [address] Chronic embolism and thrombosis of unspecified vein; [...] PM EST Office Visit Orthopedic Surgery - [place] [address] [phone] Jose Thomas, DPM [address] [phone] documented as of this encounter Visit Diagnoses Diagnosis Chronic embolism and thrombosis of unspecified vein Essential (primary) hypertension Unspecified essential hypertension documented in this encounter Care Teams Sock Mender Relationship Specialty Start Date End Date Alexandrea Renner PA [address] [place] [address] PCP - General 08/23/24 documented as of this encounter
--- OUTSIDE RECORDS SUMMARY | 2025-06-30 08:34 | XMS_ITS | Clinical Summary ---
Author Organization [facility] Address [address] [place] [address] Phone Care Team Providers Care Automatic Folder Seamer Name Role Phone Alexandrea Renner Primary Care Provider [phone] Allergies Active Allergy Reactions Criticality Noted Date [...] Encounters Date Type Department Care Team Description 05/06/2025 1:15 PM EDT Office Visit Orthopedic Surgery [place] [address] [phone] Jose Thomas DPM Ulcer of toe of right foot, limited to breakdown of skin (CMS/HCC V24, CMS/HCC V28) (Primary Dx); Tinea pedis of both feet; Peripheral venous insufficiency; Dermatophytosis of nail; Pain [...] 1:30 PM EST Office Visit Orthopedic Surgery [place] [address] [phone] Jose Thomas DPM [address] [phone] Health Maintenance Due Date Last Done Comments DTaP,Tdap,and Td Vaccines (1 - Tdap) 1967 Pneumococcal Vaccine: 50+ Years (1 of 1 - PCV) 1998 Zoster Vaccines (1 of 2) 1998 RSV Immunization Adult Patients (1 - 1-dose 75+ series) 2023 Falls Risk Assessment 08/24/2024 Medicare Annual Wellness Visit 08/24/2024 Social Influencers of Health Screening 08/24/2024 Depression Screening 10/02/2024 COVID-19 Vaccine ( - season) 2025 Influenza Vaccine (#1) 2025 Hypertension/CHF/CAD Annual BMP [...] mmol/L LAB CHEMISTRY METHOD 11/14/2024 10:06 AM [facility] Potassium 4.2 3.5 - 5.5 mmol/L LAB CHEMISTRY METHOD 11/14/2024 10:06 AM [facility] Chloride 100 96 - 110 mmol/L LAB CHEMISTRY METHOD 11/14/2024 10:06 AM [facility] CO2 32 21 - 32 mmol/L LAB CHEMISTRY METHOD 11/14/2024 10:06 AM [facility] Anion Gap 4 3 - 11 LAB CHEMISTRY METHOD 11/14/2024 10:06 AM [facility] Glucose 85 70 - 100 mg/dL LAB CHEMISTRY METHOD 11/14/2024 10:06 AM [facility] BUN 15 5 - 25 mg/dL LAB CHEMISTRY METHOD 11/14/2024 10:06 AM [facility] Creatinine 0.80 0.70 - 1.30 mg/dL LAB CHEMISTRY METHOD 11/14/2024 10:06 AM [facility] eGFR 92 >=60 mL/min/1. 73m2 LAB CHEMISTRY METHOD 11/14/2024 10:06 AM [facility] Comment:Calculation based on the Chronic Kidney Disease Epidemiology Collaboration (CKD-EPI) equation refit without adjustment for race. BUN/Creatinine Ratio 18.8 LAB CHEMISTRY METHOD 11/14/2024 10:06 AM [facility] Calcium 8.7 8.5 - 10.5 mg/dL LAB CHEMISTRY METHOD 11/14/2024 10:06 AM [facility] Blood Venous blood specimen / Unknown Venipuncture / Unknown 11/14/2024 6:02 AM EST 11/14/2024 9:18 AM EST us Elena Pepe MD LAB BLOOD ORDERABLES Fin al Result [facility] [address] [place] [address], [place] [phone] from Last 3 Months or Most Recently Relevant to Health Maintenance Insurance [employer] Member Subscriber Plan / Payer (Ef fective 2023-Present) Name:Marcio Mendoza Relation to Subscriber:Self Name:Marcio Mendoza Payer ID:[id number] Group ID:[id number] Type:Not on file Address: [place] [address] [address] [address] Care Teams Automatic Folder Seamer Relationship Specialty Start Date End Date Alexandrea Renner PA [address] [place] [id number] PCP - General 08/23/24
--- OUTSIDE RECORDS SUMMARY | 2025-06-30 08:35 | XMS_ITS | Encounter Summary ---
Author Organization [facility] [place] [address] [place] [address] Care Team Providers Care Nurse Examiner Name Role Phone Alexandrea Renner Primary Care Provider [phone] Encounter Details Date Type Department Care Team (Late st Contact Info) Description 10/16/2024 Lab Requisition [facility] - Main Lab 299 [facility] [place] [phone] Elena Pepe MD [address] [address] Weakness; Essential (primary) hypertension; Chronic embolism and thrombosis [...] PM EST Office Visit Orthopedic Surgery - [place] [address] [phone] Jose Thomas, DPM [address] [phone] documented as of this encounter Procedures Procedure Name Priority Date/Time Associated Diagnosis Comments THYROID STIMULATING HORMONE WITH REFLEX TO FREE T4 AND FREE T3 Routine 10/16/2024 5:29 AM EST Weakness Essential (primary) hypertension Chronic embolism and thrombosis of unspecified vein COMPLETE BLOOD COUNT Routine 10/16/2024 5:29 AM EST Weakness Essential (primary) hypertension Chronic embolism and thrombosis of unspecified vein FOLATE Routine 10/16/2024 5:29 AM EST Weakness Essential (primary) hypertension Chronic embolism and thrombosis of unspecified vein VITAMIN B12 Routine 10/16/2024 5:29 AM EST Weakness Essential (primary) hypertension Chronic embolism and thrombosis of unspecified vein COMPREHENSIVE METABOLIC PANEL Routine 10/16/2024 5:29 AM EST Weakness Essential (primary) hypertension Chronic embolism and thrombosis of unspecified vein documented in this encounter Results * (ABNORMAL) Folate (10/16/2024 5:29 AM EST) [facility] Folate 17.4(H) 2.8 - 17.0 ng/ml LAB CHEMISTRY METHOD 10/16/2024 12:23 PM EST [facility] Blood Venous blood specimen / Unknown Venipuncture / Unknown 10/16/2024 5:29 AM EST 10/16/2024 9:57 AM EST Elena Pepe MD LAB BLOOD ORDERABLES Fin al Result Performing Organization Address [facility]/ZIP Co de Phone Number [facility] [address] [place] [address], * Vitamin B12 (10/16/2024 5:29 AM EST) [facility] Vitamin B-12 341 250 - 900 pcg/mL LAB CHEMISTRY METHOD 10/16/2024 12:23 PM EST [facility] Blood Venous blood specimen / Unknown Venipuncture / Unknown 10/16/2024 5:29 AM EST 10/16/2024 9:57 AM EST Elena Pepe MD LAB BLOOD ORDERABLES Fin al Result [facility] [address] [place] [address], [place] [phone] * Thyroid stimulating hormone with reflex to free t4 and free t3 (10/16/2024 5:29 AM EST) Pathologist [facility] TSH 2.71 0.40 - 4.00 mcIU/mL LAB CHEMISTRY METHOD 10/16/2024 12:07 PM [facility] Blood Venous blood specimen / Unknown Venipuncture / Unknown 10/16/2024 5:29 AM EST 10/16/2024 9:57 AM EST us Elena Pepe MD LAB BLOOD ORDERABLES Fin al Result [facility] [address] [place] [address], [place] [phone] * (ABNORMAL) Comprehensive metabolic panel (10/16/2024 5:29 AM EST) [facility] Sodium 135 133 - 145 mmol/L LAB CHEMISTRY METHOD 10/16/2024 12:23 PM [facility] Potassium 4.2 3.5 - 5.5 mmol/L LAB CHEMISTRY METHOD 10/16/2024 12:23 PM [facility] Chloride 100 96 - 110 mmol/L LAB CHEMISTRY METHOD 10/16/2024 12:23 PM [facility] CO2 31 21 - 32 mmol/L LAB CHEMISTRY METHOD 10/16/2024 12:23 PM [facility] Anion Gap 4 3 - 11 LAB CHEMISTRY METHOD 10/16/2024 12:23 PM [facility] Glucose 86 70 - 100 mg/dL LAB CHEMISTRY METHOD 10/16/2024 12:23 PM [facility] BUN 20 5 - 25 mg/dL LAB CHEMISTRY METHOD 10/16/2024 12:23 PM [facility] Creatinine 0.91 0.70 - 1.30 mg/dL LAB CHEMISTRY METHOD 10/16/2024 12:23 PM [facility] eGFR 87 >=60 mL/min/1. 73m2 LAB CHEMISTRY METHOD 10/16/2024 12:23 PM [facility] Comment:Calculation based on the Chronic Kidney Disease Epidemiology Collaboration (CKD-EPI) equation refit without adjustment for race. BUN/Creatinine Ratio 22.0 LAB CHEMISTRY METHOD 10/16/2024 12:23 PM [facility] Calcium 8.2(L) 8.5 - 10.5 mg/dL LAB CHEMISTRY METHOD 10/16/2024 12:23 PM [facility] AST (SGOT) 37 10 - 42 unit/L LAB CHEMISTRY METHOD 10/16/2024 12:23 PM [facility] ALT (SGPT) 31 10 - 60 unit/L LAB CHEMISTRY METHOD 10/16/2024 12:23 PM [facility] Alkaline Phosphatase 73 42 - 121 unit/L LAB CHEMISTRY METHOD 10/16/2024 12:23 PM [facility] Total Protein 7.8 6.0 - 8.0 g/dL LAB CHEMISTRY METHOD 10/16/2024 12:23 PM [facility] Albumin 3.2 3.2 - 5.0 g/dL LAB CHEMISTRY METHOD 10/16/2024 12:23 PM [facility] Total Bilirubin 0.4 0.0 - 1.4 mg/dL LAB CHEMISTRY METHOD 10/16/2024 12:23 PM [facility] Blood Venous blood specimen / Unknown Venipuncture / Unknown 10/16/2024 5:29 AM EST 10/16/2024 9:57 AM EST us Elena Pepe MD LAB BLOOD ORDERABLES Fin al Result [facility] [address] [place] [address], * (ABNORMAL) Complete blood count (10/16/2024 5:29 AM EST) [facility] WBC 9.0 4.8 - 10.8 K/mcL LAB HEMETOLOGY METHOD 10/16/2024 11:34 AM [facility] RBC 4.70 4.50 - 5.50 M/mcL LAB HEMETOLOGY METHOD 10/16/2024 11:34 AM [facility] Hemoglobin 13.4(L) 13.5 - 17.5 g/dL LAB HEMETOLOGY METHOD 10/16/2024 11:34 AM [facility] Hematocrit 42.9 42.0 - 54.0 % LAB HEMETOLOGY METHOD 10/16/2024 11:34 AM [facility] MCV 91.1 79.0 - 98.0 FL LAB HEMETOLOGY METHOD 10/16/2024 11:34 AM [facility] MCH 28.5 27.0 - 32.0 pcg LAB HEMETOLOGY METHOD 10/16/2024 11:34 AM [facility] MCHC 31.2(L) 32.0 - 37.0 g/dL LAB HEMETOLOGY METHOD 10/16/2024 11:34 AM [facility] RDW 14.5 11.0 - 15.0 % LAB HEMETOLOGY METHOD 10/16/2024 11:34 AM [facility] Platelets 222 130 - 400 K/mcL LAB HEMETOLOGY METHOD 10/16/2024 11:34 AM [facility] MPV 10.7 7.0 - 11.0 FL LAB HEMETOLOGY METHOD 10/16/2024 11:34 AM [facility] NRBC 0.0 <1.0 % LAB HEMETOLOGY METHOD 10/16/2024 11:34 AM [facility] NRBC Absolute 0.00 <0.10 K/mcL LAB HEMETOLOGY METHOD 10/16/2024 11:34 AM EST [facility] Blood Venous blood specimen / Unknown Venipuncture / Unknown 10/16/2024 5:29 AM EST 10/16/2024 9:57 AM EST us Elena Pepe MD LAB BLOOD ORDERABLES Fin al Result [facility] [address] [place] [address], documented in this encounter Visit Diagnoses Diagnosis Weakness Other malaise and fatigue Essential (primary) hypertension Unspecified essential hypertension Chronic embolism and thrombosis of unspecified vein documented in this encounter Care Teams Nurse Examiner Relationship Specialty Start Date End Date Alexandrea Renner PA [address] [place] [address] PCP - General 08/23/24 documented as of this encounter
--- OUTSIDE RECORDS SUMMARY | 2025-06-30 08:35 | XMS_ITS | Clinical Summary ---
Author Organization [facility] Address [address] [place] [address] Care Team Providers Care Software Development Leader Name Role Phone aRchel Melgar NP Primary Care Provider Source Comments [...] once daily. 90 Capsule 02/20/20 25 Active oxyCODONE (ROXICODONE) 5 mg tablet Take 1 Tablet by mouth every 6 (six) hours as needed for pain 8/10 pain. Max Daily Amount: 20 mg 15 Tablet 05/07/20 25 Active Active Problems Problem Noted Date Diagnosed Date Class 1 obesity 05/07/2025 PAD (peripheral artery disease) ([facility] V24) Overview (04/16/2025): [place] [facility] [place] - Dx: PAD and venous stasis ulcers - Plan: OR for right femoral endarterectomy; Preoperative clearance prior to the operating room - continue diet as appropriate, aspirin and stain, smoking cessation Bilateral femoral artery stenosis ([facility] V24) 02/19/2025 PVD (peripheral vascular disease) ([facility] V24) 02/19/2025 Severe obesity ([facility]) 12/17/2024 S/P knee replacement 12/17/2024 H/O deep venous thrombosis 12/17/2024 Essential (primary) hypertension High cholesterol Cellulitis Dyslipidemia BPH (benign prostatic hyperplasia) Aneurysm artery, popliteal ([facility] V24) Overview (08/21/2024): Noted [facility] 03/01/2024 Decreased strength, endurance, and mobility Tinea pedis Encounters Date Type Department Care Team Description 05/08/2025 Results Follow-Up [address] [phone] Rachel Melgar NP 05/07/2025 10:40 AM EDT Office Visit [address] [phone] Rachel Melgar NP from Last 3 Months [...] Sign Reading Time Taken Comments Blood Pressure 136/80 05/07/2025 10:45 AM EDT Pulse 61 05/07/2025 10:45 AM EDT Temperature 36.4 C (97.5 F) 05/07/2025 10:45 AM EDT Respiratory Rate 20 05/07/2025 10:45 AM EDT Oxygen Saturation 95% 05/07/2025 10:45 AM EDT Inhaled Oxygen Concentration - - Weight 117 kg (258 lb) 08/21/2024 10:17 AM EST Height 182.9 cm (6') 08/21/2024 10:17 AM EST Body Mass Index 34.99 08/21/2024 10:17 AM EST Plan of Treatment Upcoming Encounters Date Type Department Care Team (Late st Contact Info) Description 07/28/2025 9:00 AM EDT Office Visit [facility] [address] [place] [address] Rachel Melgar NP [address] [place] [address] Health Maintenance Due Date Last Done Comments Medicare Annual Wellness Visit 1966 Imm-DTaP/Tdap/Td (1 - Tdap) 1967 Imm-Pneumococcal 50+ (1 of 1 - PCV) 1998 Imm-Zoster, Recombinant (1 of 2) 1998 Imm-RSV (adult) (1 - 1-dose 75+ series) 2023 Hor-FXYPE-41 (1 - season) 2025 Imm-Influenza (#1) 2025 Falls Prevention 09/05/2025 09/05/2024 Tobacco Screening 06/19/2026 06/19/2025 Diabetes Screening 05/13/2028 05/13/2025, 0 05/07/2025, 11/14/2024, Additional history exists Hepatitis C Screening Completed 08/21/2024 Alcohol and Drug Screen Completed 12/10/2024 Depression Annual Screen Completed 12/10/2024 Procedures Procedure Name Priority Date/Time Associated Diagnosis Comments OTHER ORDERS SCANNED DOCUMENT 05/28/2025 3:00 AM EDT COMPREHENSIVE METABOLIC PANEL Routine 05/13/2025 10:12 AM EDT ORIN (acute kidney injury) ([facility] V24) PROTHROMBIN TIME Routine 05/07/2025 11:2 9 AM EDT COMPREHENSIVE METABOLIC PANEL Routine 05/07/2025 11:29 AM EDT Preop examination BLOOD COUNT COMPLETE AUTOMATED Routine 05/07/2025 11:29 AM EDT Preop examination CARD SCANNED DOCUMENT 05/06/2025 3:00 AM EDT REFERRAL TO VASCULAR SURGERY Routine 04/10/2025 3:00 AM EDT Aneurysm artery, popliteal ([facility] V24) Cellulitis of right lower extremity HEPATITIS C AB W/RFLX HCV RNA, QT, RT PCR Routine 08/21/2024 11:30 AM EST Encounter to establish care from Last 3 Months or Most Recently Relevant to Health Maintenance Results * OTHER ORDERS SCANNED DOCUMENT (05/28/2025 3:00 AM EDT) 05/28/2025 3:00 AM EDT us Rachel Melgar NP SCAN OTHER ORDERS Final Resu lt * (ABNORMAL) COMPREHENSIVE METABOLIC PANEL Routine (05/13/2025 10:12 AM EDT) Only the most recent of2 resultswithin the time period is included. GLUCOSE 98 65 - 99 mg/dL 05/14/2025 8:29 AM EDT [employer] [facility] UREA NITROGEN (BUN) 24 7 - 25 mg/dL 05/14/2025 8:29 AM EDT [employer] [facility] CREATININE (blood) 0.98 0.70 - 1.28 mg/dL 05/14/2025 8:29 AM EDT [employer] [facility] EGFR 80 > OR = 60 mL/min/1. 73m2 05/14/2025 8:29 AM EDT [employer] [facility] BUN/CREATININE RATIO SEE NOTE: 6 - 22 (calc) 05/14/2025 8:29 AM EDT [employer] [facility] SODIUM 141 135 - 146 mmol/L 05/14/2025 8:29 AM EDT [employer] [facility] POTASSIUM 4.8 3.5 - 5.3 mmol/L 05/14/2025 8:29 AM EDT [employer] [facility] CHLORIDE 103 98 - 110 mmol/L 05/14/2025 8:29 AM EDT [employer] [facility] CARBON DIOXIDE 32 20 - 32 mmol/L 05/14/2025 8:29 AM EDT [employer] [facility] CALCIUM 9.0 8.6 - 10.3 mg/dL 05/14/2025 8:29 AM EDT [employer] [facility] PROTEIN, TOTAL 8.5(H) 6.1 - 8.1 g/dL 05/14/2025 8:29 AM EDT [employer] [facility] ALBUMIN 3.9 3.6 - 5.1 g/dL 05/14/2025 8:29 AM [employer] [facility] GLOBULIN 4.6(H) 1.9 - 3.7 g/dL (calc) 05/14/2025 8:29 AM [employer] [facility] ALBUMIN/GLOBULI N RATIO 0.8(L) 1.0 - 2.5 (calc) 05/14/2025 8:29 AM [employer] [facility] BILIRUBIN, TOTAL 0.4 0.2 - 1.2 mg/dL 05/14/2025 8:29 AM [employer] [facility] ALKALINE PHOSPHATASE 73 35 - 144 U/L 05/14/2025 8:29 AM [employer] [facility] AST 16 10 - 35 U/L 05/14/2025 8:29 AM [employer] [facility] ALT 15 9 - 46 U/L 05/14/2025 8:29 AM [employer] [facility] Blood Blood / Unknown 05/13/2025 1 0:12 AM EDT 05/14/2025 7:04 AM EDT Narrative [employer] [facility] - 05/14/2025 8:33 AM EDT FASTING:YES . Fasting reference interval . Not Reported: BUN and Creatinine are within reference range. . us Rachel Melgar NP LAB - BLOOD DRAW Final Resul t [employer] [address] [address], [employer] [address] [address] * PROTHROMBIN TIME Routine (05/07/2025 11:29 AM EDT) [facility] INTERNATIONAL NORMALIZED RATIO (INR) 1.0 05/08/2025 4:29 AM EDT [employer] [facility] PROTHROMBIN TIME 10.7 9.0 - 11.5 sec 05/08/2025 4:29 AM EDT [employer] [facility] 05/07/2025 11:2 9 AM EDT 05/08/2025 2:33 AM EDT Narrative [employer] [facility] - 05/08/2025 4:37 AM EDT Reference Range 0.9-1.1 Moderate-intensity Warfarin Therapy 2.0-3.0 Higher-intensity Warfarin Therapy 3.0-4.0 . For additional information, please refer to http://education.Covestor/faq/EWU822 (This link is being provided for informational/ educational purposes only.) Rachel Melgar NP LAB - BLOOD DRAW Final Resul t [employer] [facility] [address] [address], [employer] [facility] [address] [place] [address] * (ABNORMAL) BLOOD COUNT COMPLETE AUTOMATED Routine (05/07/2025 11:29 AM EDT) [facility] WHITE BLOOD CELL COUNT 9.6 3.8 - 10.8 Thousand/ uL 05/08/2025 4:20 AM EDT [employer] [facility] RED BLOOD CELL COUNT 4.78 4.20 - 5.80 Million/u L 05/08/2025 4:20 AM EDT [employer] [facility] HEMOGLOBIN 13.4 13.2 - 17.1 g/dL 05/08/2025 4:20 AM EDT [employer] [facility] HEMATOCRIT 43.1 38.5 - 50.0 % 05/08/2025 4:20 AM EDT [employer] [facility] MCV 90.2 80.0 - 100.0 fL 05/08/2025 4:20 AM EDT [employer] [facility] MCH 28.0 27.0 - 33.0 pg 05/08/2025 4:20 AM EDT [employer] MCHC 31.1(L) 32.0 - 36.0 g/dL 05/08/2025 4:20 AM EDT [employer] [facility] RDW 14.5 11.0 - 15.0 % 05/08/2025 4:20 AM EDT [employer] [facility] PLATELET COUNT 148 140 - 400 Thousand/ uL 05/08/2025 4:20 AM EDT [employer] [facility] MPV 10.9 7.5 - 12.5 fL 05/08/2025 4:20 AM EDT [employer] [facility] Blood Blood / Unknown 05/07/2025 1 1:29 AM EDT 05/08/2025 2:10 AM EDT Narrative [employer] [facility] - 05/08/2025 4:37 AM EDT For adults, a slight decrease in the calculated MCHC value (in the range of 30 to 32 g/dL) is most likely not clinically significant; however, it should be interpreted with caution in correlation with other red cell parameters and the patient's clinical condition. Rachel Melgar CARD FOLDER LAB - BLOOD DRAW Final Resul t [employer] [place] [facility] [address] [place] [address], [employer] [address] [address] * CARD SCANNED DOCUMENT (05/06/2025 3:00 AM EDT) 05/06/2025 3:00 AM EDT Rachel Melgar CARD FOLDER SCAN ECGS Final Result * REFERRAL TO VASCULAR SURGERY (04/10/2025 3:00 AM EDT) 04/10/2025 3:00 AM EDT Alexandrea Renner PA-C REFERRAL Final Resul t * HEPATITIS C AB W/RFLX HCV RNA, QT, RT PCR (08/21/2024 11:30 AM EST) HEPATITIS C ANTIBODY NON-REACT RADHA NON-REACT RADHA [facility] Comment: HCV antibody was non-reactive. There is no laboratory evidence of HCV infection. In most cases, no further action is required. However, if recent HCV exposure is suspected, a test for HCV RNA (test code 62774) is suggested. For additional information please refer to http://education.Covestor/faq/STR78q7 (This link is being provided for informational/ educational purposes only.) Blood Blood / Unknown 08/21/2024 1 1:30 AM EST 08/21/2024 11:31 AM EST Narrative [facility] - 08/22/2024 6:47 AM EST FASTING:NO us Alexandrea Renner PA-C LAB - BLOOD DRAW Final Resu lt [employer] [address] [place] [address], [facility] [address] [place] [phone] from Last 3 Months or Most Recently Relevant to Health Maintenance Insurance [facility] [place]GEL[place] BERNAL [id number] Care Teams Software Development Leader Relationship Specialty Start Date End Date Rachel Melgar NP [address] [place] [address] PCP - General Internal Medicine 09/03/24
--- OUTSIDE RECORDS SUMMARY | 2025-06-30 08:35 | XMS_ITS | Encounter Summary ---
Author Organization [facility] Address [address] [place] [address] Care Team Providers Care Diesel Truck Driver Name Role Phone Alexandrea Renner Primary Care Provider [phone] Encounter Details Date Type Department Care Team (Late st Contact Info) Description 10/27/2024 Lab Requisition [facility] - Main Lab [address] [facility] [place] [phone] Elena Pepe MD [address] [address] Essential (primary) hypertension; Chronic embolism and thrombosis [...] PM EST Office Visit Orthopedic Surgery - [place] [address] [phone] Jose Thomas, DPM [address] [phone] documented as of this encounter Procedures Procedure Name Priority Date/Time Associated Diagnosis Comments COMPLETE BLOOD COUNT Routine 10/28/2024 7:40 AM EST Essential (primary) hypertension Chronic embolism and thrombosis of unspecified vein BASIC METABOLIC PANEL Routine 10/28/2024 7:40 AM EST Essential (primary) hypertension Chronic embolism and thrombosis of unspecified vein documented in this encounter Results * Basic metabolic panel (10/28/2024 7:40 AM EST) Sodium 134 133 - 145 mmol/L LAB CHEMISTRY METHOD 10/28/2024 1:50 PM [facility] Potassium 4.3 3.5 - 5.5 mmol/L LAB CHEMISTRY METHOD 10/28/2024 1:50 PM [facility] Chloride 99 96 - 110 mmol/L LAB CHEMISTRY METHOD 10/28/2024 1:50 PM [facility] CO2 30 21 - 32 mmol/L LAB CHEMISTRY METHOD 10/28/2024 1:50 PM [facility] Anion Gap 5 3 - 11 LAB CHEMISTRY METHOD 10/28/2024 1:50 PM [facility] Glucose 75 70 - 100 mg/dL LAB CHEMISTRY METHOD 10/28/2024 1:50 PM [facility] BUN 16 5 - 25 mg/dL LAB CHEMISTRY METHOD 10/28/2024 1:50 PM [facility] Creatinine 0.95 0.70 - 1.30 mg/dL LAB CHEMISTRY METHOD 10/28/2024 1:50 PM [facility] eGFR 83 >=60 mL/min/1. 73m2 LAB CHEMISTRY METHOD 10/28/2024 1:50 PM [facility] Comment:Calculation based on the Chronic Kidney Disease Epidemiology Collaboration (CKD-EPI) equation refit without adjustment for race. BUN/Creatinine Ratio 16.8 LAB CHEMISTRY METHOD 10/28/2024 1:50 PM [facility] Calcium 8.8 8.5 - 10.5 mg/dL LAB CHEMISTRY METHOD 10/28/2024 1:50 PM [facility] Blood Venous blood specimen / Unknown Venipuncture / Unknown 10/28/2024 7:40 AM EST 10/28/2024 11:30 AM EST us Elena Pepe MD LAB BLOOD ORDERABLES Fin al Result [facility] [address] [place] [address], * (ABNORMAL) Complete blood count (10/28/2024 7:40 AM EST) WBC 9.1 4.8 - 10.8 K/mcL LAB HEMETOLOGY METHOD 10/28/2024 1:51 PM [facility] RBC 4.80 4.50 - 5.50 M/mcL LAB HEMETOLOGY METHOD 10/28/2024 1:51 PM [facility] Hemoglobin 13.4(L) 13.5 - 17.5 g/dL LAB HEMETOLOGY METHOD 10/28/2024 1:51 PM [facility] Hematocrit 42.9 42.0 - 54.0 % LAB HEMETOLOGY METHOD 10/28/2024 1:51 PM [facility] MCV 89.7 79.0 - 98.0 FL LAB HEMETOLOGY METHOD 10/28/2024 1:51 PM [facility] MCH 28.0 27.0 - 32.0 pcg LAB HEMETOLOGY METHOD 10/28/2024 1:51 PM [facility] MCHC 31.2(L) 32.0 - 37.0 g/dL LAB HEMETOLOGY METHOD 10/28/2024 1:51 PM [facility] RDW 14.6 11.0 - 15.0 % LAB HEMETOLOGY METHOD 10/28/2024 1:51 PM [facility] Platelets 211 130 - 400 K/mcL LAB HEMETOLOGY METHOD 10/28/2024 1:51 PM [facility] MPV 10.7 7.0 - 11.0 FL LAB HEMETOLOGY METHOD 10/28/2024 1:51 PM EST [facility] NRBC 0.0 <1.0 % LAB HEMETOLOGY METHOD 10/28/2024 1:51 PM EST [facility] NRBC Absolute 0.00 <0.10 K/mcL LAB HEMETOLOGY METHOD 10/28/2024 1:51 PM EST [facility] Blood Venous blood specimen / Unknown Venipuncture / Unknown 10/28/2024 7:40 AM EST 10/28/2024 11:30 AM EST us Elena Pepe MD LAB BLOOD ORDERABLES Fin al Result [facility] [address] [place] [address], documented in this encounter Visit Diagnoses Diagnosis Essential (primary) hypertension Unspecified essential hypertension Chronic embolism and thrombosis of unspecified vein documented in this encounter Care Teams Diesel Truck Driver Relationship Specialty Start Date End Date Alexandrea Renner PA [facility] [place] [address] PCP - General 08/23/24 documented as of this encounter
--- OUTSIDE RECORDS SUMMARY | 2025-06-30 08:36 | XMS_ITS | Encounter Summary ---
Author Organization [facility] Address [address] [place] [address] Care Team Providers Care Hospital Educator Name Role Phone Alexandrea Renner Primary Care Provider [phone] Encounter Details Date Type Department Care Team (Late st Contact Info) Description 10/20/2024 Lab Requisition [facility] - Main Lab [address] [facility] [place] [phone] Elena Pepe MD [address] [address] Essential (primary) hypertension; Chronic embolism and thrombosis [...] PM EST Office Visit Orthopedic Surgery - [place] [address] [phone] Jose Thomas, DPM [address] [phone] documented as of this encounter Procedures Procedure Name Priority Date/Time Associated Diagnosis Comments COMPLETE BLOOD COUNT Routine 10/21/2024 6:35 AM EST Essential (primary) hypertension Chronic embolism and thrombosis of unspecified vein BASIC METABOLIC PANEL Routine 10/21/2024 6:35 AM EST Essential (primary) hypertension Chronic embolism and thrombosis of unspecified vein documented in this encounter Results * Basic metabolic panel (10/21/2024 6:35 AM EST) Sodium 135 133 - 145 mmol/L LAB CHEMISTRY METHOD 10/21/2024 12:54 PM [facility] Potassium 4.6 3.5 - 5.5 mmol/L LAB CHEMISTRY METHOD 10/21/2024 12:54 PM [facility] Chloride 100 96 - 110 mmol/L LAB CHEMISTRY METHOD 10/21/2024 12:54 PM [facility] CO2 27 21 - 32 mmol/L LAB CHEMISTRY METHOD 10/21/2024 12:54 PM [facility] Anion Gap 8 3 - 11 LAB CHEMISTRY METHOD 10/21/2024 12:54 PM [facility] Glucose 82 70 - 100 mg/dL LAB CHEMISTRY METHOD 10/21/2024 12:54 PM [facility] BUN 19 5 - 25 mg/dL LAB CHEMISTRY METHOD 10/21/2024 12:54 PM [facility] Creatinine 0.92 0.70 - 1.30 mg/dL LAB CHEMISTRY METHOD 10/21/2024 12:54 PM [facility] eGFR 86 >=60 mL/min/1. 73m2 LAB CHEMISTRY METHOD 10/21/2024 12:54 PM [facility] Comment:Calculation based on the Chronic Kidney Disease Epidemiology Collaboration (CKD-EPI) equation refit without adjustment for race. BUN/Creatinine Ratio 20.7 LAB CHEMISTRY METHOD 10/21/2024 12:54 PM [facility] Calcium 8.6 8.5 - 10.5 mg/dL LAB CHEMISTRY METHOD 10/21/2024 12:54 PM [facility] Blood Venous blood specimen / Unknown Venipuncture / Unknown 10/21/2024 6:35 AM EST 10/21/2024 11:14 AM EST us Elena Pepe MD LAB BLOOD ORDERABLES Fin al Result [facility] [address] [place] [address], * (ABNORMAL) Complete blood count (10/21/2024 6:35 AM EST) WBC 7.9 4.8 - 10.8 K/mcL LAB HEMETOLOGY METHOD 10/21/2024 12:05 PM [facility] RBC 4.70 4.50 - 5.50 M/mcL LAB HEMETOLOGY METHOD 10/21/2024 12:05 PM [facility] Hemoglobin 13.3(L) 13.5 - 17.5 g/dL LAB HEMETOLOGY METHOD 10/21/2024 12:05 PM [facility] Hematocrit 42.9 42.0 - 54.0 % LAB HEMETOLOGY METHOD 10/21/2024 12:05 PM [facility] MCV 91.5 79.0 - 98.0 FL LAB HEMETOLOGY METHOD 10/21/2024 12:05 PM [facility] MCH 28.4 27.0 - 32.0 pcg LAB HEMETOLOGY METHOD 10/21/2024 12:05 PM [facility] MCHC 31.0(L) 32.0 - 37.0 g/dL LAB HEMETOLOGY METHOD 10/21/2024 12:05 PM [facility] RDW 14.6 11.0 - 15.0 % LAB HEMETOLOGY METHOD 10/21/2024 12:05 PM [facility] Platelets 219 130 - 400 K/mcL LAB HEMETOLOGY METHOD 10/21/2024 12:05 PM [facility] MPV 10.9 7.0 - 11.0 FL LAB HEMETOLOGY METHOD 10/21/2024 12:05 PM EST [facility] NRBC 0.0 <1.0 % LAB HEMETOLOGY METHOD 10/21/2024 12:05 PM EST [facility] NRBC Absolute 0.00 <0.10 K/mcL LAB HEMETOLOGY METHOD 10/21/2024 12:05 PM EST [facility] Blood Venous blood specimen / Unknown Venipuncture / Unknown 10/21/2024 6:35 AM EST 10/21/2024 11:14 AM EST us Elena Pepe MD LAB BLOOD ORDERABLES Fin al Result [facility] [address] [place] [address], documented in this encounter Visit Diagnoses Diagnosis Essential (primary) hypertension Unspecified essential hypertension Chronic embolism and thrombosis of unspecified vein documented in this encounter Care Teams Hospital Educator Relationship Specialty Start Date End Date Alexandrea Renner PA [facility] [place] [address] PCP - General 08/23/24 documented as of this encounter
--- OUTSIDE RECORDS SUMMARY | 2025-06-30 08:36 | XMS_ITS | Encounter Summary ---
Author Organization [facility] Address [address] [place] [address] Care Team Providers Care Railway Switchman Name Role Phone Alexandrea Renner Primary Care Provider [phone] Encounter Details Date Type Department Care Team (Late st Contact Info) Description 10/23/2024 Lab Requisition [facility] - Main Lab [address] [facility] [place] [phone] Elena Pepe MD [address] [address] Essential (primary) hypertension; Chronic embolism and thrombosis [...] PM EST Office Visit Orthopedic Surgery - [address] [phone] Jose Thomas, DPM [address] [phone] documented as of this encounter Procedures Procedure Name Priority Date/Time Associated Diagnosis Comments COMPLETE BLOOD COUNT Routine 10/24/2024 6:36 AM EST Essential (primary) hypertension Chronic embolism and thrombosis of unspecified vein BASIC METABOLIC PANEL Routine 10/24/2024 6:36 AM EST Essential (primary) hypertension Chronic embolism and thrombosis of unspecified vein documented in this encounter Results * (ABNORMAL) Basic metabolic panel (10/24/2024 6:36 AM EST) Sodium 135 133 - 145 mmol/L LAB CHEMISTRY METHOD 10/24/2024 12:06 PM [facility] Potassium 4.6 3.5 - 5.5 mmol/L LAB CHEMISTRY METHOD 10/24/2024 12:06 PM [facility] Chloride 100 96 - 110 mmol/L LAB CHEMISTRY METHOD 10/24/2024 12:06 PM [facility] CO2 29 21 - 32 mmol/L LAB CHEMISTRY METHOD 10/24/2024 12:06 PM [facility] Anion Gap 6 3 - 11 LAB CHEMISTRY METHOD 10/24/2024 12:06 PM [facility] Glucose 78 70 - 100 mg/dL LAB CHEMISTRY METHOD 10/24/2024 12:06 PM [facility] BUN 18 5 - 25 mg/dL LAB CHEMISTRY METHOD 10/24/2024 12:06 PM [facility] Creatinine 0.99 0.70 - 1.30 mg/dL LAB CHEMISTRY METHOD 10/24/2024 12:06 PM [facility] eGFR 79 >=60 mL/min/1. 73m2 LAB CHEMISTRY METHOD 10/24/2024 12:06 PM [facility] Comment:Calculation based on the Chronic Kidney Disease Epidemiology Collaboration (CKD-EPI) equation refit without adjustment for race. BUN/Creatinine Ratio 18.2 LAB CHEMISTRY METHOD 10/24/2024 12:06 PM [facility] Calcium 8.0(L) 8.5 - 10.5 mg/dL LAB CHEMISTRY METHOD 10/24/2024 12:06 PM [facility] Blood Venous blood specimen / Unknown Venipuncture / Unknown 10/24/2024 6:36 AM EST 10/24/2024 11:08 AM EST us Elena Pepe MD LAB BLOOD ORDERABLES Fin al Result [facility] [address] [place] [address], [place] [phone] * (ABNORMAL) Complete blood count (10/24/2024 6:36 AM EST) WBC 8.3 4.8 - 10.8 K/mcL LAB HEMETOLOGY METHOD 10/24/2024 11:46 AM [facility] RBC 4.60 4.50 - 5.50 M/mcL LAB HEMETOLOGY METHOD 10/24/2024 11:46 AM [facility] Hemoglobin 12.9(L) 13.5 - 17.5 g/dL LAB HEMETOLOGY METHOD 10/24/2024 11:46 AM [facility] Hematocrit 41.7(L) 42.0 - 54.0 % LAB HEMETOLOGY METHOD 10/24/2024 11:46 AM [facility] MCV 90.7 79.0 - 98.0 FL LAB HEMETOLOGY METHOD 10/24/2024 11:46 AM [facility] MCH 28.0 27.0 - 32.0 pcg LAB HEMETOLOGY METHOD 10/24/2024 11:46 AM [facility] MCHC 30.9(L) 32.0 - 37.0 g/dL LAB HEMETOLOGY METHOD 10/24/2024 11:46 AM [facility] RDW 14.8 11.0 - 15.0 % LAB HEMETOLOGY METHOD 10/24/2024 11:46 AM [facility] Platelets 193 130 - 400 K/mcL LAB HEMETOLOGY METHOD 10/24/2024 11:46 AM [facility] MPV 10.5 7.0 - 11.0 FL LAB HEMETOLOGY METHOD 10/24/2024 11:46 AM EST [facility] NRBC 0.0 <1.0 % LAB HEMETOLOGY METHOD 10/24/2024 11:46 AM EST [facility] NRBC Absolute 0.00 <0.10 K/mcL LAB HEMETOLOGY METHOD 10/24/2024 11:46 AM EST [facility] Blood Venous blood specimen / Unknown Venipuncture / Unknown 10/24/2024 6:36 AM EST 10/24/2024 11:08 AM EST us Elena Pepe MD LAB BLOOD ORDERABLES Fin al Result [facility] [address] [place] [address], documented in this encounter Visit Diagnoses Diagnosis Essential (primary) hypertension Unspecified essential hypertension Chronic embolism and thrombosis of unspecified vein documented in this encounter Care Teams Railway Switchman Relationship Specialty Start Date End Date Alexandrea Renner PA [address] [place] [address] PCP - General 08/23/24 documented as of this encounter
--- NOTE | 2025-06-30 13:07 | MHC.OFFVISWM ---
VS Expanded 06/30/25 13:08 Height 6 ft Weight 303 lb 12 oz BMI 41.2 Intake Visit Reasons: TV ANESTHESIOLOGY CRNA MWL *GLOBAL RECRUITER* Explosive Ordnance Disposal Specialist Required: Yes Explosive Ordnance Disposal Specialist Services: Explosive Ordnance Disposal Specialist Present Information Interpreted: clinical only Allergies atorvastatin (From Lipitor) Adverse Reaction (Unknown, Verified 06/30/25 13:10) Constipation other Allergy (Unknown, Uncoded 06/30/25 13:10) Itching Medication List - Last Reconciled 06/30/25 by Zacarias Carty MD aspirin 81 mg PO olmesartan-hydrochlorothiazide 20-12.5 mg 1 tab PO DAILY rosuvastatin 40 mg PO BEDTIME tamsulosin 0.4 mg PO DAILY HPI HPI TV ANESTHESIOLOGY CRNA MWL *GLOBAL RECRUITER*: Details: Start time: 1.00pm, End time: 1.35pm ?I spent 30 minutes speaking with the patient on the phone plus an additional 5 minutes reviewing and updating records for a total of 35 minutes HPI Comments Details: Previous weight loss efforts: Herbalife Wakes up: 7am, Sleeps: 8pm Breakfast: 10am (eggs with bread and ham) Lunch: skips Dinner: 7pm (salad) Snacks: 3pm (crackers) Exercise: none (wheelchair-bound) Beverages: Coffee (2 cups/d black), Tea: none, Soda: none, Juice: (orange juice: 1 cup/d), ETOH: none PFSH Medical History (Updated 06/30/25 @ 13:15 by Zacarias Carty MD) Wheelchair dependent BPH (benign prostatic hyperplasia) Hyperlipidemia Hypertension Morbid obesity Surgical History (Updated 06/30/25 @ 13:15 by Zacarias Carty MD) History of cataract surgery Previous back surgery Family History (Updated 05/22/25 @ 14:13 by Marzena Ruff CMA) Mother No problems noted. Father No problems noted. Social History (Updated 05/22/25 @ 14:07 by Marzena Ruff CMA) Alcohol intake: never Patient Tobacco Use Status: Never used Tobacco Telehealth Telehealth Telehealth Platform: Telephone Location of provider rendering services: practice address Location of patient: address on file Patient Identification confirmed using: Name, : Yes Telehealth method: voice only Patient verbally consented to treatment: Yes Patient verbally consented to billing insurance company: Yes Patient informed of any privacy concerns related to visit: Yes Minutes spent on Phone/Video with Pt.: 35 Assessment & Plan Assessment & Plan (1) Morbid obesity: Code(s): E66.01 - Morbid (severe) obesity due to excess calories Category: Medical Plan: 1) Please do the blood work fasting overnight and let us know 2) our lifestyle intervention program has an average weight loss of 10% in 3 months.?You will need the liquid PREMIER protein shakes and 16gr Fit Crunch protein bars. You will need 2 protein bars per day and one and a half Premier bottles per day so you can calculate the cost. Please let us know if you could afford to buy them. 3) You will need to come to the office weekly for a weight check Orders: Orders Complete Blood Count Auto Diff Today E66.01 - Morbid (severe) obesity due to excess calories, E78.5 - Hyperlipidemia, unspecified, I10 - Essential (primary) hypertension Comprehensive Met. Panel Today E66.01 - Morbid (severe) obesity due to excess calories, E78.5 - Hyperlipidemia, unspecified, I10 - Essential (primary) hypertension Vitamin B12 and Folate Today E66.01 - Morbid (severe) obesity due to excess calories, E78.5 - Hyperlipidemia, unspecified, I10 - Essential (primary) hypertension Vitamin B1 Today E66.01 - Morbid (severe) obesity due to excess calories, E78.5 - Hyperlipidemia, unspecified, I10 - Essential (primary) hypertension Vitamin A Today E66.01 - Morbid (severe) obesity due to excess calories, E78.5 - Hyperlipidemia, unspecified, I10 - Essential (primary) hypertension ECG 12 lead EKG Today E66.01 - Morbid (severe) obesity due to excess calories, E78.5 - Hyperlipidemia, unspecified, I10 - Essential (primary) hypertension FL upper GI w air Today E66.01 - Morbid (severe) obesity due to excess calories, E78.5 - Hyperlipidemia, unspecified, I10 - Essential (primary) hypertension Insulin Today E66.01 - Morbid (severe) obesity due to excess calories, E78.5 - Hyperlipidemia, unspecified, I10 - Essential (primary) hypertension Hemoglobin A1c Today E66.01 - Morbid (severe) obesity due to excess calories, E78.5 - Hyperlipidemia, unspecified, I10 - Essential (primary) hypertension Lipid Panel Today E66.01 - Morbid (severe) obesity due to excess calories, E78.5 - Hyperlipidemia, unspecified, I10 - Essential (primary) hypertension IRON PROFILE Today E66.01 - Morbid (severe) obesity due to excess calories, E78.5 - Hyperlipidemia, unspecified, I10 - Essential (primary) hypertension Zinc Today E66.01 - Morbid (severe) obesity due to excess calories, E78.5 - Hyperlipidemia, unspecified, I10 - Essential (primary) hypertension C Reactive Protein Today E66.01 - Morbid (severe) obesity due to excess calories, E78.5 - Hyperlipidemia, unspecified, I10 - Essential (primary) hypertension TSH reflex Free T4 Today E66.01 - Morbid (severe) obesity due to excess calories, E78.5 - Hyperlipidemia, unspecified, I10 - Essential (primary) hypertension Ferritin Today E66.01 - Morbid (severe) obesity due to excess calories, E78.5 - Hyperlipidemia, unspecified, I10 - Essential (primary) hypertension Vitamin D 25-OH Total Today E66.01 - Morbid (severe) obesity due to excess calories, E78.5 - Hyperlipidemia, unspecified, I10 - Essential (primary) hypertension US abdomen comp w elastography Today E66.01 - Morbid (severe) obesity due to excess calories, E78.5 - Hyperlipidemia, unspecified, I10 - Essential (primary) hypertension XR chest 2V Today E66.01 - Morbid (severe) obesity due to excess calories, E78.5 - Hyperlipidemia, unspecified, I10 - Essential (primary) hypertension Referrals Behavioral Health Referral E66.01 - Morbid (severe) obesity due to excess calories, E78.5 - Hyperlipidemia, unspecified, I10 - Essential (primary) hypertension Nutrition/Dietitian Referral E66.01 - Morbid (severe) obesity due to excess calories, E78.5 - Hyperlipidemia, unspecified, I10 - Essential (primary) hypertension
[2025-06-30 13:08] VITALS: BMI 41.2
== END 2025-06-30 13:36 | disposition home or self-care (01) ==
LOC: HO.HBS 08:19
PROVIDERS: PCP Dentist General Practice; Visit Provider Surgery
DX: E66.01 Morbid (severe) obesity due to excess calories (principal); Z68.41 Body mass index [BMI] 40.0-44.9, adult
CPT/HCPCS: 99203

== ENCOUNTER 2025-07-09 09:55 | Outpatient (REF) | payer OTHER, SELFPAY ==
--- NOTE | ~2025-07-09 | XR_ITS ---
EXAMINATION: XR CHEST CLINICAL INFORMATION: E66.01 - Morbid (severe) obesity due to excess calories COMPARISON: None available. TECHNIQUE: 2 views of the chest were obtained. FINDINGS: Opacity in the right costophrenic angle is likely related to atelectasis. Lungs are clear otherwise. Heart size is within normal limits. The aorta is tortuous. Mild to moderate degenerative changes are present in the thoracic spine. XR/XR chest 2V IMPRESSION: Right costophrenic angle density could represent atelectasis, though pneumonia is not ruled out. Electronically signed by: Alex Ballard MD 07/09/2025 10:54 AM EDT
--- NOTE | 2025-07-09 10:09 | ECG_ITS ---
Test Reason : E66.01 Blood Pressure : */* mmHG Vent. Rate : 81 BPM Atrial Rate : 81 BPM P-R Int : 164 ms QRS Dur : 102 ms QT Int : 364 ms P-R-T Axes : 13 -29 10 degrees QTcB Int : 422 ms Normal sinus rhythm Normal ECG No previous ECGs available Referred By: Zacarias Carty Electronically Signed By: EMERALD IRVING MD
[2025-07-09 10:33] LABS: MANUAL DIFF FLAG NO
[2025-07-09 10:50] LABS: Hematocrit 40.9 % (42.0-52.0); Hemoglobin 13.1 g/dl (14.0-18.0); Imm Gran Abs Auto 0.03 X10*3/uL (0.00-0.03); Imm Gran Pct Auto 0.4 % (0.0-0.4); Lymphocytes Absolute Auto 2.0 X10*3/uL (1.2-4.9); Mean Corpuscular HGB Conc 32.0 g/dl (31.0-36.0); Mean Corpuscular Hemoglobin 28.3 pg (27.0-33.0); Mean Corpuscular Volume 88.3 fL (80.0-98.0); NRBC Abs Auto 0.000 X10*3/uL (0.0-0.012); NRBC Pct Auto 0.0 /100WBC (0.0-0.2); Platelet Count 215 X10*3/uL (160-400); Red Blood Count 4.63 X10*6/uL (4.60-5.80); White Blood Count 7.4 X10*3/uL (4.8-10.8)
[2025-07-09 11:55] LABS: Alanine Aminotransferase 25 U/L (0-40); Albumin Level 3.9 g/dL (3.5-5.0); Alkaline Phosphatase 77 U/L (39-117); Anion Gap 10 (12-20); Aspartate Amino Transferase 32 U/L (5-37); Blood Urea Nitrogen 22 mg/dL (9-16); Calcium 9.3 mg/dL (8.4-10.2); Carbon Dioxide 28 mmol/L (22-29); Chloride 106 mmol/L (96-108); Cholesterol 142 mg/dL (<200); Estimated Glomerular Filt Rate > 60; Ferritin 197 ng/mL (20-250); HDL Cholesterol 26 mg/dL (>40); Iron 59 mcg/dL (45-160); Percent Iron Saturation 24 % (15-50); Potassium 4.2 mmol/L (3.3-5.1); Sodium 140 mmol/L (135-145); Total Iron Binding Capacity 251 mcg/dL (228-428); Total Protein 9.0 g/dL (6.5-8.0); Triglycerides 106 mg/dL (<150); Unsaturated Iron Binding 192 ug/dL
[2025-07-09 12:06] LABS: Folate 9.9 ng/mL (> or = 4.0); Vitamin B12 385 pg/mL (200-900)
== END 2025-07-09 09:56 | disposition home or self-care (01) ==
LOC: HO.XRAY 09:55
PROVIDERS: PCP Nurse Practitioner; Visit Provider Surgery
DX: Z13.1 Encounter for screening for diabetes mellitus (principal); E66.01 Morbid (severe) obesity due to excess calories; E78.5 Hyperlipidemia, unspecified; I10 Essential (primary) hypertension
CPT/HCPCS: 36415; 71046; 80053; 80061; 82306; 82607; 82728; 82746; 83036; 83525; 83540; 84425; 84443; 84590; 84630; 85025; 86140; 93005

== ENCOUNTER → 2025-07-09 10:09 | Outpatient (BNV) | payer OTHER, SELFPAY | PROVIDERS: PCP Nurse Practitioner; Visit Provider Internal Medicine Cardiovascular Disease | DX: E66.01 Morbid (severe) obesity due to excess calories (principal); Z68.41 Body mass index [BMI] 40.0-44.9, adult | CPT/HCPCS: 93010 ==

== ENCOUNTER → 2025-07-09 10:31 | Outpatient (BNV) | payer OTHER, SELFPAY | PROVIDERS: PCP Nurse Practitioner; Visit Provider Radiology Diagnostic Radiology | DX: E66.01 Morbid (severe) obesity due to excess calories (principal) | CPT/HCPCS: 71046 ==

== ENCOUNTER 2025-09-11 09:17 | Outpatient (REF) | payer OTHER, SELFPAY ==
--- NOTE | ~2025-09-11 | US_ITS ---
EXAMINATION: US ABDOMEN COMPLETE WITH LIVER ELASTOGRAPHY HISTORY: E66.01 - Morbid (severe) obesity due to excess calories TECHNIQUE: Real-time grayscale ultrasound imaging of the abdomen was performed and images were reviewed. COMPARISON: There are no prior studies available for comparison. FINDINGS: The examination is somewhat limited by difficulty in patient positioning (the patient was scanned in a wheelchair). Liver: The right lobe of the liver measures 16.2 cm in size. The left lobe of the liver measures 12.1 cm in size. The liver demonstrates normal homogeneous echotexture. There is a 2.1 cm cyst in the left lobe. No intrahepatic biliary ductal dilatation is identified. There is normal hepatopedal flow in the portal vein. Ultrasound elastography of the liver was performed with 10 separate measurements of the liver parenchyma with the patient in the supine position. Measurements were obtained approximately 2 cm below Aida's capsule and perpendicular to the capsule. The median shear wave velocity is 1.65 m/s. The interquartile range/median (IQR/median) is 0.13. Gallbladder and biliary tree: The gallbladder is unremarkable, without evidence of calculi, wall thickening, or pericholecystic fluid. There is no sonographic Ruth sign. The common bile duct is normal in caliber measuring 4 mm. Kidneys: The right kidney measures 11.0 cm in length. Evaluation is limited due to overlying bowel gas. The left kidney is not visualized due to bowel gas. Pancreas: The pancreas is obscured by bowel gas. Spleen: The spleen is normal in size and contour, measuring 9.0 cm in length. Abdominal aorta and inferior vena cava: The visualized portions of the abdominal aorta and inferior vena cava are normal in caliber. There is no free fluid in the abdomen. US/US abdomen comp w elastography IMPRESSION: Limited examination as described. No significant liver abnormality is identified. The median shear wave velocity in the liver is 1.65 m/s, corresponding to a median liver stiffness of 8.59 kPa. The IQR/median value is 0.13. This is indicative of a quality data set. Findings are indicative of a low elastography value which rules out advanced chronic liver disease in asymptomatic patients. REFERENCE: Society of Radiologists in Ultrasound Liver Stiffness Thresholds (2020): LIVER STIFFNESS THRESHOLDS: *Shear wave velocity less than 1.3 m/s (Liver Stiffness equal or less than 5 kPa): High probability of being normal. *Shear wave velocity less than 1.7 m/s (Liver Stiffness less than 9 kPa): In the absence of other known clinical signs, rules out compensated advanced chronic liver disease. *Shear wave velocity between 1.7-2.1 m/s (Liver Stiffness 9-13 kPa): Suggestive of compensated advanced chronic liver disease but need further test for confirmation. *Shear wave velocity between 2.1-2.4 m/s (Liver Stiffness 13-17 kPa): Rules in compensated advanced chronic liver disease. *Shear wave velocity greater than 2.4 m/s (Liver Stiffness over 17 kPa): Suggestive of clinically significant portal hypertension. QUALITY OF DATA SET: *IQR/Median value equal or less than 0.15 implies a quality data set. *IQR/Median value over 0.15 implies a poor quality data set. SIGNIFICANT CHANGE FROM PRIOR EXAM: Significant change if liver stiffness measurement is 10% or greater from prior exam. OTHER CONSIDERATIONS: The stage of liver fibrosis may be overestimated in the setting of acute hepatitis, liver inflammation, elevated liver function tests, hepatic vascular congestion, obstructive cholestasis, non-fasting state, and infiltrative diseases such as amyloidosis and lymphoma. In some patients with NAFLD, the liver stiffness thresholds for compensated advanced chronic liver disease may be lower. In causes other than viral hepatitis and NAFLD, liver stiffness thresholds are not well established. Electronically signed by: Tom Escobedo MD 09/11/2025 10:20 AM ANKIT
== END 2025-09-11 09:18 | disposition home or self-care (01) ==
LOC: HO.US 09:17
PROVIDERS: PCP Nurse Practitioner; Visit Provider Surgery
DX: E66.01 Morbid (severe) obesity due to excess calories (principal); E78.5 Hyperlipidemia, unspecified; I10 Essential (primary) hypertension
CPT/HCPCS: 76700; 76981

== ENCOUNTER → 2025-09-11 09:18 | Outpatient (BNV) | payer OTHER, SELFPAY | PROVIDERS: PCP Nurse Practitioner; Visit Provider Radiology Diagnostic Radiology | DX: E66.01 Morbid (severe) obesity due to excess calories (principal); Z68.41 Body mass index [BMI] 40.0-44.9, adult | CPT/HCPCS: 76700 ==